=== PATIENT | female | born 1965 | race Caucasian/White ===

== ENCOUNTER 2017-11-17 14:21 | Outpatient (REF) | payer OTHER, SELFPAY ==
[2017-11-17 21:37] LABS: Abs Immature Grans 0.01 k/cumm (0.0-0.09); Absolute Basophil Count 0.02 k/cumm (0.0-0.2); Absolute Lymphocyte Count 0.94 k/cumm (1.2-3.4); Absolute Monocyte Count 0.66 k/cumm (0.11-0.7); Absolute Neutrophil Count 3.07 k/cumm (1.2-6.7); Basophils % 0.4; HCT 35.6 % (36.0-46.0); HGB 12.2 g/dL (12.0-15.5); Immature Grans % 0.2; Mean Corp. HGB Concentration 34.3 g/dL (32.0-36.0); Mean Corpuscular Hemoglobin 35.3 pg (27.0-33.0); Mean Corpuscular Volume 102.9 fL (80-95); Mean Platelet Volume 10.8 fL (8.0-11.0); Neutrophils % 65.4; Platelet Count 133 x1000/uL (130-400); RBC 3.46 m/cumm (4.00-5.20)
[2017-11-17 22:16] LABS: ESR 12 MM/HR (0-30)
[2017-11-17 22:35] LABS: ALT 38 U/L (12-78); AST 52 U/L (15-37); Albumin 3.6 g/dL (3.4-5.0); Alkaline Phosphatase 65 U/L (46-116); Anion Gap 9.7 mmol/L (3-11); BUN 17 mg/dL (7-18); Bilirubin, Total 0.2 mg/dL (0.2-1.0); C-Reactive Protein 0.13 mg/dL (0.0-0.3); CO2 27.3 mmol/L (21.0-32.0); CREATININE 0.72 mg/dL (0.55-1.02); Calcium 8.6 mg/dL (8.5-10.1); Chloride 105 mmol/L (98-107); Glucose 103 mg/dL (70-100); Sodium 142 mmol/L (136-145); Total Protein 7.1 g/dL (6.4-8.2)
[2017-11-19 10:14] LABS: Rheumatoid Factor 11 IU/mL (<12.5)
[2017-11-19 20:01] LABS: Anaplasma phagocytophilum Negative (Negative); B. miyamotoi PCR Negative (Negative); Babesia divergens/MO-1 Negative (Negative); Babesia duncani Negative (Negative); Babesia microti Negative (Negative); Ehrlichia chaffeensis Negative (Negative); Ehrlichia ewingii/canis Negative (Negative); Ehrlichia muris eauclairensis Negative (Negative)
== END 2017-11-17 14:41 ==
LOC: NCHCN 14:21
PROVIDERS: PCP Family Medicine; Visit Provider Family Medicine
DX: M06.30 Rheumatoid nodule, unspecified site (principal); M25.50 Pain in unspecified joint; T14.8XXA Other injury of unspecified body region, initial encounter; W57.XXXA Bitten or stung by nonvenomous insect and other nonvenomous arthropods, initial encounter
CPT/HCPCS: 80053; 85652; 85025; 86140; 86431; 87798

== ENCOUNTER 2018-02-09 15:57 | Outpatient (REF) | payer OTHER, SELFPAY ==
[2018-02-11 10:44] LABS: Lyme Ab w Rflx to Lyme Confirm Negative
[2018-02-11 19:32] LABS: Anaplasma phagocytophilum Negative (Negative); B. miyamotoi PCR Negative (Negative); Babesia divergens/MO-1 Negative (Negative); Babesia duncani Negative (Negative); Babesia microti Negative (Negative); Ehrlichia chaffeensis Negative (Negative); Ehrlichia ewingii/canis Negative (Negative); Ehrlichia muris eauclairensis Negative (Negative)
== END 2018-02-09 16:17 ==
LOC: NCHCN 15:57
PROVIDERS: PCP Family Medicine; Visit Provider Family Medicine
DX: T14.8XXA Other injury of unspecified body region, initial encounter (principal); W57.XXXA Bitten or stung by nonvenomous insect and other nonvenomous arthropods, initial encounter
CPT/HCPCS: 86618; 87798

== ENCOUNTER 2018-11-18 00:45 | Outpatient (CLI) | payer OTHER, SELFPAY ==
--- NOTE | 2018-11-18 12:00 | DI.RAD_ITS ---
EXAM: XR SHOULDER LT COMPLETE 2+V INDICATION: LT SHOULDER PAIN, DISABILITY DETERMINATION. COMPARISON: No exams were available for comparison TECHNIQUE: 2D digital imaging was performed. FINDINGS: Five views were obtained. Prominent hypertrophic spurring of the humeral head and glenoid. Narrowin g of the glenohumeral cartilaginous joint space noted. Minimal AC DJD noted. IMPRESSION: Moderate to severe degenerative changes of the glenohumeral joint.
--- NOTE | 2018-11-18 12:19 | DI.RAD_ITS ---
EXAM: XR LUMBAR SPINE AP, LAT INDICATION: BACK PAIN, DISABILITY DETERMINATION. COMPARISON: [facility] ILIAC JOINTS from 08/06/2016 TECHNIQUE: 2D digital imaging was performed. FINDINGS: Three views were obtained. There is marked narrowing of the intervertebral disc space at L5-S1 with vacuum disc phenomenon consistent with disc degeneration and there is marked sclerosis of the adjacen t vertebral endplates with prominent hypertrophic spurring noted. Moderate facet DJD noted throughou t the lumbar region. Otherwise the intervertebral disc spaces are fairly well maintained. No eviden ce of fracture or dislocation. Question slight pseudo spondylolisthesis of L4 on L5. IMPRESSION: Severe changes of disc degeneration at L5-S1. Facet degenerative changes throughout the lumbar spine .
--- NOTE | 2018-11-18 12:20 | DI.RAD_ITS ---
EXAM: XR KNEE LT 2V AP,LAT INDICATION: KRYSTA KNEE PAIN, DISABILITY DETERMINATION. COMPARISON: No exams were available for comparison TECHNIQUE: 2D digital imaging was performed. FINDINGS: Two views were obtained. There narrowing of the medial tibiofemoral cartilaginous joint space presum ably on a degenerative basis. No other significant abnormality seen. IMPRESSION:
--- NOTE | 2018-11-18 12:20 | DI.RAD_ITS ---
EXAM: XR KNEE RT 2V AP,LAT INDICATION: KRYSTA KNEE PAIN, DISABILITY DETERMINATION. COMPARISON: No exams were available for comparison TECHNIQUE: 2D digital imaging was performed. FINDINGS: Two views were obtained. There narrowing of the medial tibiofemoral cartilaginous joint space. This is presumably on a degenerative basis. No other significant abnormality seen. IMPRESSION:
== END 2018-11-18 01:05 ==
PROVIDERS: PCP Family Medicine; Visit Provider Pediatrics Pediatric Rheumatology
DX: M25.561 Pain in right knee (principal); M25.562 Pain in left knee; M25.512 Pain in left shoulder; M19.011 Primary osteoarthritis, right shoulder; M17.0 Bilateral primary osteoarthritis of knee; M54.5 Low back pain; M51.37 Other intervertebral disc degeneration, lumbosacral region; M47.816 Spondylosis without myelopathy or radiculopathy, lumbar region; Z02.71 Encounter for disability determination
CPT/HCPCS: 72100; 73030; 73560

== ENCOUNTER 2018-11-18 02:28 | Outpatient (CLI) | payer OTHER, SELFPAY | END 2018-11-18 02:48 | PROVIDERS: PCP Family Medicine; Visit Provider Pediatrics Pediatric Rheumatology | DX: J45.909 Unspecified asthma, uncomplicated (principal); J44.9 Chronic obstructive pulmonary disease, unspecified; Z02.71 Encounter for disability determination | CPT/HCPCS: 94060 ==

== ENCOUNTER 2019-05-06 12:44 | Outpatient (REF) | payer OTHER, SELFPAY | END 2019-05-06 13:04 | LOC: NCHCN 12:44 | PROVIDERS: PCP Family Medicine; Visit Provider Physician Assistant Medical | DX: N39.0 Urinary tract infection, site not specified (principal) | CPT/HCPCS: 87077; 87086; 87186 ==

== ENCOUNTER 2019-08-01 09:23 | Day surgery (SDC) | payer OTHER, SELFPAY | END 2019-08-01 09:43 | PROVIDERS: PCP Family Medicine; Visit Provider Orthopaedic Surgery | DX: M19.012 Primary osteoarthritis, left shoulder (principal); Z53.9 Procedure and treatment not carried out, unspecified reason ==

== ENCOUNTER 2019-08-29 11:04 | Day surgery (SDC) | payer OTHER, SELFPAY ==
[2019-08-29 11:15] VITALS: BP 128/88; PULSE 87; RESP 18; TEMP 36.6; O2SAT 100
--- NOTE | 2019-08-29 12:15 | DI.RAD_ITS ---
EXAM: XR SHOULDER LT 1V CLINICAL HISTORY: OA left shoulder. TECHNIQUE: Fluoroscopy was provided for Dr. Hurley for guidance with performing injection procedure. COMPARISON: No exams were available for comparison FINDINGS: Please see procedure note for details. Fluoro Time 1.5 seconds RADIATION DOSE DELIVERED:
[2019-08-29] MEDS: methylPREDNISolone ACETATE 80 MG/ML VIAL (12:40)
--- NOTE | 2019-08-29 12:44 | W.PM.DSUDISC ---
Discharge Plan Disposition Patient Disposition: HOME Condition: Good Discharge Details Reason For Visit: (L) SHOULDER INJECTION Attending Provider: Holden Hurley Primary Care Provider: Mariia Dale V Home Meds and New Rx's Prescriptions: No Action meloxicam [Mobic] 15 MG tablet 15 mg PO DAILY RF: 3 Flovent HFA 120 PUFF HFA aerosol inhaler 2 puff Inhalation BID PRNRF: 0 lorazepam 1 MG tablet 1 mg PO BID RF: 0 albuterol sulfate [ProAir HFA] 200 PUFF HFA aerosol inhaler 2 puff Inhalation PRN PRNRF: 0 promethazine 25 MG tablet 25 mg PO Q6H PRNQty: 12 RF: 0 polyethylene glycol 3350 [Miralax] 17 GM powder in packet 17 gm PO DAILY PRNRF: 0 ranitidine HCl 300 MG tablet 300 mg PO DAILY RF: 0 cyanocobalamin (vitamin B-12) 1,000 MCG/ML solution 1,000 mcg IM .QMONTHLY RF: 0 mometasone [Nasonex] 17 GM spray,non-aerosol 1 spray NS DIRECTED PRNRF: 0 fexofenadine-pseudoephedrine [Yanira-D 12 Hour] 1 EACH tablet extended release 12 hr 1 tab PO BID PRNRF: 0 ibuprofen-diphenhydramine cit [Advil PM] 1 EACH tablet 1 tab PO PRN PRNRF: 0 Discharge Instructions Additional Instructions: Rest L shoulder for next 48 hours. On Thu use L arm as much as your discomfort allows. Apply ice to L shoulder 4 times/day for 1 hour each time for next 2 days. Follow up with in one month. Referrals: Holden Hurley MD [ [facility] STAFF PHYSICIAN] - (f/u in one month) Activity:: Activity as Tolerated Diet:: As Tolerated Discharge Orders Discharge Orders: Discharge Order (Routine); Ordered 08/29/19 Ordered By: Holden Hurley DS: Diagnosis Discharge Diagnosis (1) Primary osteoarthritis, left shoulder: Status: Acute
--- NOTE | 2019-08-29 14:11 | W.PM.OP ---
Date of service: 08/29/19 Time of Service: 14:11 Operative Note Operative Note DATE OF PROCEDURE: 08/29/19 PRE-OP DIAGNOSIS: Osteoarthritis left shoulder POST-OP DIAGNOSIS: same PROCEDURE: C arm guided intra-articular injection left shoulder joint SURGEON: Holden Hurley ANESTHESIA: none COMPLICATIONS: None Patient was transported to: same day Patient's condition: stable Indications: There is a 53-year-old white female with osteoarthritis of her left shoulder. She is experiencing increasing pain that is not being controlled with oral medications. She is hoping to avoid arthroplasty as long as possible. C arm guided intra-articular steroid injection was recommended as a procedure to relieve her pain. She understands that this is a temporizing procedure and that she will probably need shoulder hemiarthroplasty or total shoulder arthroplasty at some point in future. Procedure Description: Patient was taken the operating room on 08/29/2019 placed supine on the operative table. Utilizing a uterine ring forcep and the C arm I localized the left shoulder joint from the front. A jaxson was made on the skin around the uterine forceps. An 18-gauge spinal needle was inserted after prepping the skin with alcohol. The needle was advanced until contact the humeral head. The C-arm was brought in again to confirm good placement of the needle in the shoulder joint. 15 cc of 0.5% Marcaine with epinephrine epinephrine solution along with 80 mg Depo-Medrol were then injected to the spinal needle into the shoulder joint. She achieved good relief of pain. She was discharged to the day surgery unit unit in good condition. She was given instructions to rest her left arm as much as possible next 48 hours. She is to put ice to her left shoulder 4 times a day for an hour each time. She may resume his activities as tolerated for 48 hours. She should follow-up with Dr. Hurley in 1 month. She should take Tylenol or ibuprofen for pain if needed.
== END 2019-08-29 13:02 | disposition home or self-care (01) ==
PROVIDERS: PCP Family Medicine; Visit Provider Orthopaedic Surgery
PROC: (CPT 20610; principal; 2019-08-29 12:30)
DX: M19.012 Primary osteoarthritis, left shoulder (principal); M25.512 Pain in left shoulder
CPT/HCPCS: 20610; 77002; 73020; J1040

== ENCOUNTER → 2020-03-23 02:49 | Outpatient (CLI) | payer OTHER, SELFPAY ==
[2020-03-23] MEDS: Bupivacaine 0.5% Pres-Free 10 ML VIAL IJ (13:23)
[2020-03-23] MEDS: methylPREDNISolone ACETATE 80 MG/ML VIAL IM (13:23)
[2020-03-23] MEDS: Omnipaque 300 MG/ML 10 ML BTL IJ (13:23)
--- NOTE | 2020-03-23 13:24 | DI.RAD_ITS ---
EXAM: RF JOINT INJECTION FLUORO GUID CLINICAL HISTORY: L SHOULDER INJ UNDER FLUORO,RUPTURE LONG HEAD,PRIMARY OA,STRAIN TECHNIQUE: 2D and realtime digital imaging was performed. CONTRAST MATERIAL: Refer to procedure report. COMPARISON: No exams were available for comparison FINDINGS: Fluoroscopy was provided during intra-articular left shoulder injection. Position of the needle is near the biceps tendon insertion into the anterosuperior aspect of the labr um. Small amount of intra-articular contrast is evident and is intimately related to the intra-artic ular aspect of the biceps tendon. Please refer to the procedure report for complete details. Fluoro time: 8 seconds. IMPRESSION:
--- NOTE | 2020-03-24 06:29 | W.PROCNOTE ---
Date of service: 03/23/20 Time of Service: 13:07 Procedure Note Date of procedure: 03/24/20 Procedure: Left Shoulder Injection Surgeon/Proceduralist/Physician: Douglas Hernandez Procedure Diagnosis: Left Glenohumeral Arthritis Procedure Indications: Shireen has had persistent pain of the LEFT shoulder. Noninvasive measures have been tried. To serve as both diagnostic and therapeutic, an injection under fluoroscopy was recommended. I had discussed the risks of the procedure and the patient elected to proceed. Procedure Description: Shireen was greeted in the flouroscopy room. The correct side was identified and the consent was reviewed with the patient and signed. The patient was then placed in the supine position on the fluoroscopy table. The LEFT shoulder was then prepped with Chloraprep. The anterior injection starting point was identiifed by bony landmarks and fluoroscopy. The skin and soft tissue in the tract of the injection was anesthetized with 1% Lidocaine. A spinal needle was then inserted deep into the shoulder joint at the level of the recess between the glenoid and superior humeral head. A small amount of Omnipaque solution was injected to confirm intraarticular placement. Once confirmed, the shoulder was injected with 4cc of 0.5% Bupivicaine and 80mg of Depo-Medrol. A bandaid was placed on the injection site. The patient tolerated the procedure well and noted improvement in pre-injection pain.
== END ==
PROVIDERS: PCP Family Medicine; Visit Provider Student in an Organized Health Care Education/Training Program
DX: M19.012 Primary osteoarthritis, left shoulder (principal); M25.512 Pain in left shoulder
CPT/HCPCS: 20610; 77002; J1040

== ENCOUNTER 2020-05-07 00:51 | Outpatient (CLI) | payer OTHER, SELFPAY ==
--- NOTE | 2020-05-07 08:00 | DI.MRI_ITS ---
EXAM: MR UPPER JOINT LT WO CLINICAL HISTORY: Preop evaluation,PRIMARY OA LT SHOULDER,LT ROTATOR CUFF TEAR,M19.012, TECHNIQUE: Multiplanar multisequence MRI of the shoulder was performed. COMPARISON: CR XR HUMERUS LEFT from 11/01/2019 CR XR SHOULDER LEFT from 11/01/2019 FINDINGS: MARROW:There is no evidence of fracture, Hill-Sachs deformity, nor ominous osseous lesions. There is, however, some intraosseous edema in the humeral head and osseous glenoid is most probably related to the advanced degenerative changes here. ROTATOR CUFF MECHANISM: AC JOINT/ACROMIUM: There are mild degenerative changes in the AC joint. No prominent downgoing osteo phytes.. There is no evidence of os acromiale. Supraspinatus: There is signal abnormality in the supraspinatus tendon which traverses mostly thickne ss of the tendon and there is small amount of fluid in the subacromial bursa. Infraspinatus: Intact. No evidence of tear nor muscle atrophy. Teres Minor: Intact. No evidence of tear nor muscle atrophy. Subscapularis/anterior cuff: Intact. No abnormal signal at the level of the multipennate insertional fibers. No significant tear nor atrophy. BICEPS TENDON: Normal position in the intertubercular groove. However, the intra-articular tendon appears a attenuated. LABRUM: Tear seen in the superior labrum posterior to the biceps insertion region. There is also def iciency of the anterior labrum related to probable chronic tearing related to or through advanced deg enerative osteoarthritic changes here. The posterior labrum appears relatively intact. Inferior lab rum exhibits some tearing. There is no evidence of paralabral cyst GLENOHUMERAL JOINT: There is a prominent joint effusion with synovial thickening. There is significa nt [place] cartilage loss with [id number] apposition of the glenohumeral joint level. Also osteop hyte on the inferior talar surface of the humeral head. There is a degenerative subarticular cysts o n the anterior aspect of the humerus which measures approximately 6 x 4 millimeters. . QUADRILATERAL SPACE: No evidence of mass in the region of the axillary nerve and dorsal circumflex hu meral vessels. Visualized triceps muscle at this level appears unremarkable. IMPRESSION: 1. There are advanced osteoarthritic degenerative changes in the glenohumeral joint with significant [place] cartilage loss-joint space narrowing and osteophytes on the inferior articular surfaces of t he humeral head and opposing osseous glenoid. 2. There is a moderate-large size glenohumeral joint effusion and synovial thickening. This is proba stevan related to degenerative changes. 3. Partial tearing of the supraspinatus tendon above the greater tuberosity. Also superimposed on te ndinosis. Mild muscle atrophy. 4. Partial tearing of the biceps tendon. Slap-type superior labral tear. Also tearing of the anter ior labrum. No evidence of paralabral cyst. DATA REPOSITORY:
== END 2020-05-07 01:11 ==
PROVIDERS: PCP Family Medicine; Visit Provider Student in an Organized Health Care Education/Training Program
DX: M19.012 Primary osteoarthritis, left shoulder (principal); M25.412 Effusion, left shoulder; M75.112 Incomplete rotator cuff tear or rupture of left shoulder, not specified as traumatic; S46.212A Strain of muscle, fascia and tendon of other parts of biceps, left arm, initial encounter
CPT/HCPCS: 73221

== ENCOUNTER 2020-08-21 15:41 | Outpatient (REF) | payer OTHER, SELFPAY ==
[2020-08-21 20:01] LABS: HCT 38.3 % (36.0-46.0); HGB 13.1 g/dL (11.2-15.7); MCH 35.3 pg (27.0-33.0); MCHC 34.2 % (32.0-36.0); MCV 103.2 fL (80-95); MPV 10.5 fL (8.0-11.0); Platelet Count 144 10^3/uL (130-400); RBC 3.71 10^6/uL (3.93-5.22); RDW 12.2 % (11.7-14.6); RDW-SD 46.7 fL; WBC 5.92 10^3/uL (4.4-10.8)
[2020-08-21 20:22] LABS: ESR 10 mm/hr (0-30)
[2020-08-21 20:25] LABS: ALT 37 U/L (14-59); AST 65 U/L (15-37); Albumin 4.1 g/dL (3.4-5.0); Alkaline Phosphatase 63 U/L (46-116); Anion Gap 10.9 mmol/L (3-11); BUN 11 mg/dL (7-18); Bilirubin, Total 0.3 mg/dL (0.2-1.0); C-Reactive Protein 0.06 mg/dL (0.0-0.3); CO2 26.1 mmol/L (21.0-32.0); CREATININE 0.6 mg/dL (0.55-1.02); Calcium 8.8 mg/dL (8.5-10.1); Chloride 104 mmol/L (98-107); Glucose 115 mg/dL (74-106); Potassium 3.9 mmol/L (3.5-5.1); Sodium 141 mmol/L (136-145); TSH (W/Ref FT4) 2.13 uIU/mL (0.36-3.74); Total Protein 7.5 g/dL (6.4-8.2)
[2020-08-25 06:35] LABS: 2-OH-Ethyl-Flurazepam Negative ng/mL (Cutoff: 10); 7-NH-Clonazepam Negative ng/mL (Cutoff: 10); 7-NH-Flunitrazepam Negative ng/mL (Cutoff: 10); Alpha OH-Alprazolam Negative ng/mL (Cutoff: 10); Alpha-OH Midazolam Negative ng/mL (Cutoff: 10); Alpha-OH-Triazolam Negative ng/mL (Cutoff: 10); Alprazolam Negative ng/mL (Cutoff: 10); Benzodiazepines Interpretation Positive.; Chlordiazepoxide Negative ng/mL (Cutoff: 10); Clobazam Negative ng/mL (Cutoff: 10); Clonazepam Negative ng/mL (Cutoff: 10); Diazepam Negative ng/mL (Cutoff: 10); Flurazepam Negative ng/mL (Cutoff: 10); Lorazepam 136 ng/mL (Cutoff: 10); Midazolam Negative ng/mL (Cutoff: 10); N-Desmethylclobazam Negative ng/mL (Cutoff: 10); Prazepam Negative ng/mL (Cutoff: 10); Temazepam Negative ng/mL (Cutoff: 10); Triazolam Negative ng/mL (Cutoff: 10); Zolpidem Carboxylic acid Negative ng/mL (Cutoff: 10)
[2020-08-25 13:19] LABS: Codeine Negative ng/mL (Cutoff: 25); Dihydrocodeine 79 ng/mL (Cutoff: 25); Hydrocodone 215 ng/mL (Cutoff: 25); Hydromorphone Negative ng/mL (Cutoff: 25); Morphine Negative ng/mL (Cutoff: 25); Naloxone Negative ng/mL (Cutoff: 25); Norhydrocodone 274 ng/mL (Cutoff: 25); Noroxycodone 1108 ng/mL (Cutoff: 25); Noroxymorphone Negative ng/mL (Cutoff: 25); Opiates Interpretation Positive.
== END 2020-08-21 15:42 | disposition home or self-care (01) ==
LOC: NCHCN 15:41
PROVIDERS: PCP Family Medicine; Visit Provider Family Medicine
DX: Z51.81 Encounter for therapeutic drug level monitoring; R63.4 Abnormal weight loss; E53.8 Deficiency of other specified B group vitamins
CPT/HCPCS: 80053; 80361; 80362; 80365; 85027; 85652; 80346; 84443; 86140

== ENCOUNTER 2020-10-08 12:10 | Outpatient (REF) | payer OTHER, SELFPAY ==
[2020-10-08 19:35] LABS: Vitamin B12 1285 pg/mL (193-986)
[2020-10-10 10:22] LABS: Hepatitis A Antibody IgM Negative (Negative); Hepatitis B Core Antibody Negative (Negative); Hepatitis B surface Ag Negative (Negative); Hepatitis C Ab w Rflx HCV PCR Negative (Negative)
[2020-10-10 10:34] LABS: Lyme Ab w Rflx to Lyme Confirm Negative (Negative)
[2020-10-10 23:45] LABS: Anaplasma phagocytophilum Negative (Negative); B. miyamotoi PCR Negative (Negative); Babesia divergens/MO-1 Negative (Negative); Babesia duncani Negative (Negative); Babesia microti Negative (Negative); Ehrlichia chaffeensis Negative (Negative); Ehrlichia ewingii/canis Negative (Negative); Ehrlichia muris eauclairensis Negative (Negative)
== END 2020-10-08 12:11 | disposition home or self-care (01) ==
LOC: NCHCN 12:10
PROVIDERS: PCP Family Medicine; Visit Provider Family Medicine
DX: E53.8 Deficiency of other specified B group vitamins (principal); R74.8 Abnormal levels of other serum enzymes; A93.8 Other specified arthropod-borne viral fevers
CPT/HCPCS: 86704; 86709; 86803; 87340; 87798; 82607; 86618

== ENCOUNTER 2020-11-28 01:14 | Outpatient (CLI) | payer OTHER, SELFPAY ==
--- NOTE | 2020-11-28 | DI.CTLCSR_ITS ---
Exam(s) CT CHEST LUNG CANCER SCREEN EXAM: CT CHEST LUNG CANCER SCREEN CLINICAL HISTORY: SCREENING FOR LUNG CA, FORMER SMOKER, Z12.9 TECHNIQUE: Imaging Protocol: Axial computed tomography images with coronal and sagittal reformatted images were created and reviewed COMPARISON: No exams were available for comparison FINDINGS: Tracheobronchial tree: Patent where visualized. Pulmonary parenchyma: No consolidation or dominant measurable mass. Paraseptal emphysematous changes are present. There are mildly increased interstitial infiltrates in the periphery of the lungs bilat erally. Lung Nodules: None. Mediastinum and Nupur: No dominant adenopathy or fluid collection. Thyroid gland: Unremarkable. Pleura: No effusion or pneumothorax. Heart: The heart is not dilated. Coronary artery calcification. No pericardial effusion. Aorta: Thoracic aorta non-dilated.Atherosclerosis. Upper abdomen: Unremarkable. Soft Tissues: Unremarkable. Bones: There are subacute fractures involving the posterior aspects of the left 9th through 12th ribs . There is some callus formation about the fractures. IMPRESSION: 1. No pulmonary nodules. 2. Paraseptal emphysema. 3. Increased peripheral interstitial infiltrates. While this may reflect chronic interstitial diseas e, an interstitial pneumonia or edema cannot be excluded. Follow-up as clinically appropriate. 4. Subacute fractures involving the posterior aspects of the left 9th through 12th ribs. Lung RADS Cat 1 - Negative: No nodules and definitely benign nodules Lung-RADS 1.0 CATEGORIES: Category 0 - Prior chest CT exam(s) being located for comparison. Category 1 - Annual screening in 12 months. No nodules or definitely benign nodules. Category 2 - Annual screening in 12 months. Benign appearance. Nodules with low likelihood of becomin g active cancer. Category 3 - 6-month follow-up. Probably benign. Short-term follow-up suggested. Nodules with low lik elihood of becoming active cancer. Category 4A - 3-month follow-up and CT/PET if >8 mm in size. Suspicious finding. Findings which requi re additional testing. Category 4B - Findings which require additional testing and tissue sampling. Suspicious finding. Modifier S- Potentially clinically significant finding. (Non lung cancer) RADIATION DOSE DELIVERED: 82.65mGy.cm Total DLP CTDIvol 82.65mGy.cm Total DLP CTDIvol DATA REPOSITORY: All CT scans at this facility are submitted to the National Radiology Data Registry (NRDR) Dose Index Registry (DIR) with the [employer] (ACR). RADIATION OPTIMIZATION: All CT scans at this facility use at least one of these dose optimization te chniques: automated exposure control; mA and/or kV adjustment per patient size (includes targeted exa ms where dose is matched to clinical indication); or iterative reconstruction.
--- NOTE | 2020-11-28 | DI.MAMMO_ITS ---
Exam(s) MAMMO SCREENING EXAM: MAMMO SCREENING CLINICAL HISTORY: SCREENING,COUNTS INCLUDE 234 BEDS AT THE [facility],Z00.00 TECHNIQUE: Bilateral full field digital CC and MLO mammographic images were obtained with 3D tomosyn thesis and utilizing computer aided detection (CAD). COMPARISON: Available for comparison. FINDINGS: Masses/Architectural Distortion: None seen. There is a an asymmetric density in the upper left breast 7 cm from the nipple. Microcalcifications: No suspicious pleomorphic-type are seen. Skin Thickening/Nipple Retraction: None. IMPRESSION: 1. Asymmetric density in the upper left breast 7 cm from the nipple. 2. Further evaluation with spot compression view and ultrasound is recommended. BI-RADS Category 0 - Assessment Incomplete: Need additional imaging evaluation Breast Density - Category C - Heterogeneously dense Breast density category C or D implies that the patient has dense breast tissue. Dense breast tissue is very common and is not abnormal but dense breast tissue can make it harder to find cancer on a ma mmogram. Also, dense breast tissue may increase their breast cancer risk. This information about the result of the mammogram report was provided to the patient to raise their awareness. Use this report when you speak with the patient about their risks for breast cancer, which includes their family hist ory. At that time, you may recommend for more screening tests (Ultrasound or MRI) as they might be us eful based on their risk. A negative radiographic report should not delay biopsy if a dominant or clinically suspicious mass is present. Up to ten percent of cancers are not identified on mammography. A negative report may reinforce clinical impression. Adenosis and dense breasts may obscure an underlying neoplasm. False positive reports average 6 to 10%. Patient will receive a letter notifying them of these results.
== END 2020-11-28 01:34 ==
PROVIDERS: PCP Family Medicine; Visit Provider Family Medicine
DX: Z12.31 Encounter for screening mammogram for malignant neoplasm of breast (principal); Z12.2 Encounter for screening for malignant neoplasm of respiratory organs; R92.8 Other abnormal and inconclusive findings on diagnostic imaging of breast; J43.2 Centrilobular emphysema; R91.8 Other nonspecific abnormal finding of lung field; S22.42XA Multiple fractures of ribs, left side, initial encounter for closed fracture
CPT/HCPCS: 71271; 77063; 77067

== ENCOUNTER 2020-12-11 01:18 | Outpatient (CLI) | payer OTHER, SELFPAY ==
--- NOTE | 2020-12-11 | DI.US_ITS ---
Exam(s) MG MAMMO SCREEN CALL BACK UNI US BREAST LT LIMITED EXAM: MG MAMMO SCREEN CALL BACK UNI and U/S breast LT limited CLINICAL HISTORY: F/U MAMMO,ASYMMETRIC DENSITY UPPER LT BREAST. TECHNIQUE: Craniocaudal and mediolateral oblique Full Field Digital Mammography views of the left br east with Computer Aided Diagnosis followed by Tomosynthesis and left breast ultrasound. COMPARISON: Previous are available for comparison. FINDINGS: Mammography/Tomosynthesis: Masses/Architectural Distortion: The asymmetry in the upper breast left focal on the current examinat ion. It appears represent fibroglandular tissue. Microcalcifictions: No suspicious pleomorphic-type are seen. Skin Thickening/Nipple Retraction: None. Left breast US: The upper inner and upper outer quadrants of the left breast were evaluated sonograph ically. Echotexture: Normal appearance of the glandular tissue. Shadowing: No suspicious foci. Cyst: None. Solid lesions: None seen. Ductal dilation: None. IMPRESSION: 1. No evidence of malignancy is noted. 2. A six-month follow-up left mammogram is recommended for re-evaluation. 3. The findings were discussed with the patient on the date of the examination. BI-RADS Category 3 - 6 month - Probably Benign Finding: Recommend follow-up imaging in 6 months Breast Density - Category C - Heterogeneously dense Breast density Category C or D implies that the patient has dense breast tissue. Dense breast tissue can make it harder to find cancer on a mammogram. Dense breast tissue is also associated with an incr eased risk of breast cancer. This information about the result of the mammogram report was provided to the patient to raise their awareness. Use this report when you speak with the patient about their risks for breast cancer, which includes their family history. At that time, you may recommend additional screening tests (Ultrasoun d or MRI) as these tests may add significant information. A negative radiographic report should not delay biopsy if a dominant or clinically suspicious mass is present. Up to ten percent of cancers are not identified on mammography. A negative report may reinforce clinical impression. Adenosis and dense breasts may obscure an underlying neoplasm. False positive reports average 6 to 10%. Patient will receive a letter notifying them of these results.
== END 2020-12-11 01:38 ==
PROVIDERS: PCP Family Medicine; Visit Provider Family Medicine
DX: R92.8 Other abnormal and inconclusive findings on diagnostic imaging of breast (principal)
CPT/HCPCS: 76642; 77063; 77067

== ENCOUNTER 2021-02-21 19:08 | Outpatient (REF) | payer OTHER, SELFPAY ==
[2021-02-22 15:36] LABS: COVID-19 RT-PCR UVMMC Result Negative (Negative)
== END 2021-02-21 19:09 | disposition home or self-care (01) ==
LOC: NCHCN 19:08
PROVIDERS: PCP Family Medicine; Visit Provider Family Medicine
DX: Z20.822 Contact with and (suspected) exposure to COVID-19 (principal)
CPT/HCPCS: U0003

== ENCOUNTER 2021-03-26 12:43 | Outpatient (REF) | payer OTHER, SELFPAY ==
[2021-03-28 12:48] LABS: COVID-19 RT-PCR UVMMC Result Negative (Negative)
== END 2021-03-26 12:44 | disposition home or self-care (01) ==
LOC: NCHCN 12:43
PROVIDERS: PCP Family Medicine; Visit Provider Family Medicine
DX: Z20.822 Contact with and (suspected) exposure to COVID-19 (principal)
CPT/HCPCS: U0003

== ENCOUNTER → 2021-06-11 00:44 | Outpatient (CLI) | payer OTHER, SELFPAY | PROVIDERS: PCP Family Medicine; Visit Provider Family Medicine ==

== ENCOUNTER → 2021-07-03 00:09 | Outpatient (CLI) | payer OTHER, SELFPAY | PROVIDERS: PCP Family Medicine; Visit Provider Family Medicine | CPT/HCPCS: 80053; 85027; 85652; 84443; 86140 ==

== ENCOUNTER 2021-08-21 11:54 | Outpatient (CLI) | payer OTHER, SELFPAY ==
--- NOTE | 2021-08-21 11:30 | DI.RAD_ITS ---
Exam(s) XR SHOULDER RT COMPLETE 2+V EXAM: XR SHOULDER RT COMPLETE 2+V CLINICAL HISTORY: right shoulder pain TECHNIQUE: COMPARISON: CR XR SHOULDER LT COMPLETE 2+V from 08/21/2021 FINDINGS: Two views were obtained. There is moderate to severe loss of the cartilaginous joint space of the gl enohumeral joint. There is mild subchondral sclerosis of the glenoid. There are prominent marginal osteophytes of the glenoid particularly inferiorly and mild to moderate osteophytes of the articular margins of the humeral head are also noted. There is an ossific body projected over the greater tube rosity of the humerus which is nonspecific and which may represent old accessory ossification or old dystrophic calcification. Minimal degenerative changes of the AC joint noted. IMPRESSION: Moderate DJD glenohumeral joint. RADIATION DOSE DELIVERED: Total DLP
--- NOTE | 2021-08-21 11:30 | DI.RAD_ITS ---
Exam(s) XR SHOULDER LT COMPLETE 2+V EXAM: XR SHOULDER LT COMPLETE 2+V CLINICAL HISTORY: left shoulder pain TECHNIQUE: COMPARISON: CR XR SHOULDER LEFT from 11/01/2019 FINDINGS: Two views were obtained. There is severe loss of the cartilaginous joint space of the glenohumeral j oint with marked subchondral sclerosis and flattening of the adjacent bones. There are very prominen t marginal osteophytes the humeral head and glenoid. No other significant bony or soft tissue abnormality seen. IMPRESSION: Severe DJD glenohumeral joint. RADIATION DOSE DELIVERED: Total DLP
== END 2021-08-21 11:55 | disposition home or self-care (01) ==
LOC: DIORS 11:54
PROVIDERS: PCP Family Medicine; Referring Provider Family Medicine; Visit Provider Student in an Organized Health Care Education/Training Program
DX: M25.511 Pain in right shoulder (principal); M25.512 Pain in left shoulder; M19.011 Primary osteoarthritis, right shoulder; M19.012 Primary osteoarthritis, left shoulder
CPT/HCPCS: 73030

== ENCOUNTER 2021-12-31 23:15 | Emergency (ER) | payer OTHER, SELFPAY ==
--- NOTE | 2021-12-31 23:30 | DI.CT_ITS ---
Exam(s) CT HEAD CERVICAL SPINE WO EXAM: CT HEAD CERVICAL SPINE WO CLINICAL HISTORY: fall. TECHNIQUE: Imaging Protocol: Axial computed tomography images with coronal and sagittal reformatted images were created and reviewed COMPARISON: No exams were available for comparison FINDINGS: CT Head: Ventricles and Extra axial spaces: Normal in size and morphology for the patient's age. Hemorrhage: None. Cerebral parenchyma: Normal. Midline shift: None. Brainstem/Cerebellum: Normal. Calvarium: Normal. Visualized Paranasal sinuses/Mastoids: Clear. Soft Tissues: There is a scalp hematoma overlying the posterior left calvarium. CT Cervical Spine: Bones: No acute fracture or subluxation. There is cervical spondylosis. Soft Tissues: Unremarkable. Lung Apices: Clear. IMPRESSION: 1. No acute intracranial process. 2. No acute fracture or subluxation in the cervical spine. 3. Left posterior scalp hematoma. RADIATION DOSE DELIVERED: 1,017.6mGy.cm Total DLP DATA REPOSITORY: All CT scans at this facility are submitted to the National Radiology Data Registry (NRDR) Dose Index Registry (DIR) with the [employer] (ACR). RADIATION OPTIMIZATION: All CT scans at this facility use at least one of these dose optimization te chniques: automated exposure control; mA and/or kV adjustment per patient size (includes targeted exa ms where dose is matched to clinical indication); or iterative reconstruction.
--- NOTE | 2021-12-31 23:30 | RT.EKG_ITS ---
APPROVED REPORT Exam: Resting ECG Reason for Exam: head injury Patient Location: E HR:94 bpm ECG Measurements Heart Rate 94 AXIS VA 146 P 83 QRSd 89 QRS 65 QT 369 T 46 QTc 461 Conclusion Sinus rhythm...normal P axis, V-rate 60- 99 Right atrial enlargement...P>0.25mV 2 lds or<-0.24mV aVR/aVL
--- NOTE | 2021-12-31 23:44 | ED.GENADUL_ITS ---
Discharge Plan Disposition Patient Disposition: HOME Condition: Stable Discharge Details Clinical Impression: Blunt head trauma, Fall Primary Care Provider: Mariia Dale V ED Provider: Ion Claros Home Meds and New Rx's Prescriptions: Continued meloxicam [Mobic] 15 MG tablet 15 mg PO DAILY ibuprofen [Advil] 200 mg tablet 200 mg PO Q6H PRN One-A-Day Women's 50 Plus 400-20 mcg tablet 1 tab PO DAILY naloxone [Narcan] 4 mg/actuation spray,non-aerosol 4 mg intranasal Q2M PRN Rx Instructions: spray 1 dose into ONE nostril; alternate nostrils w each dose until help arrives amlodipine 10 mg tablet 10 mg PO DAILY hydrocodone-acetaminophen 10-325 mg tablet 1 tab PO Q6H PRN oxycodone 20 mg tablet extended release 12 hr PO HS fluticasone propionate [Flovent HFA] 120 PUFF HFA aerosol inhaler 2 puff Inhalation BID PRN lorazepam 1 MG tablet 1 mg PO BID albuterol sulfate [ProAir HFA] 200 PUFF HFA aerosol inhaler 2 puff Inhalation PRN PRN promethazine 25 MG tablet 25 mg PO Q6H PRNQty: 12 0RF polyethylene glycol 3350 [Miralax] 17 GM powder in packet 17 gm PO DAILY PRN Label Comments: 03/28/14 Pt states Qthree days. PG cyanocobalamin (vitamin B-12) 1,000 MCG/ML solution 1,000 mcg IM .QMONTHLY Label Comments: 12/29/14- Pt has not taken for a couple of months. KL mometasone [Nasonex] 17 GM spray,non-aerosol 1 spray NS DIRECTED PRN fexofenadine-pseudoephedrine [Yanira-D 12 Hour] 1 EACH tablet extended release 12 hr 1 tab PO BID PRN Advil PM 1 EACH tablet 1 tab PO PRN PRN Discharge Instructions Additional Instructions: your cat scan did not show concerning findings try to limit alcohol consumption and try not to drink if you take lorazepam or pain medicine follow up with your primary care provider within 1-2 weeks if you feel more ill, have severe worsening pain or new symptoms such as difficulty breathing return to the emergency department Medical Decision Making 56 yo female who has is on chronic pain medications along with benzos for anxiety and states she drinks alcohol most days comes in after a fall. She was drinking throughout the day and states she took her lorazepam and oxycodone which she does frequently, fell from standing hitting the back of her head on a gumball machine they have at home. She woke up on the ground and her brought her here. She arrives caox4 with mild slurring of her words. She has no focal motor deficits. She has no back, neck, chest or abdominal tenderness. She has a 3cm hematoma to the superior scalp, no lacerations or abrasions. Given her intoxication will obtain ct head and c spine. Suspect her fall was due to alcohol, benzo and opiate mixed together but will check cbc, cmp, ekg and troponin. labs unremarkable other than etoh level of 150, ct unremarkable. She is caox4 and is able to ambulate. Discussed with her not mixing alcohol and her prescription benzos and opiates. She was advised to f/u with her pcp, return precautions given. She has no midline neck tenderness. Her is here and can drive her home. Differential Diagnosis Differential Diagnosis: tbi, alcohol intoxication Imaging Data Radiologic Study: Attestation: I personally reviewed and interpreted this imaging study as follows: Imaging: CT Scan Radiologist's impression: no acute findings Lab Data Lab results reviewed: Yes I reviewed the patient's lab results. ECG Data Attestation: I personally reviewed and interpreted this ECG (s) as follows: Prior ECG tracings: not available for review Interpretation: sinus rate of [address] t wave ischemic findings HPI General Date/Time Provider Initiated Documentation: 12/31/21 23:35 . Limitations to Documentation: no limitations . Information obtained by: patient . History of Present Illness 56 year old F presents to the emergency department with the chief complaint of fall, described as moderate, and it has been constant. No relieving factors improve symptom(s), No exacerbating factors reported . Patient notes denies chest pain, fever/chills, nausea/vomiting and shortness of breath. Patient did receive the following treatments prior to arrival, none Related Data Home Medications Medication Instructions Recorded Confirmed albuterol sulfate 90 mcg/actuation 2 puff inhalation PRN PRN 01/31/13 08/21/21 aerosol inhaler (ProAir HFA) fluticasone propionate 220 2 puff inhalation BID PRN 01/31/13 08/21/21 mcg/actuation HFA aerosol inhaler (Flovent HFA) lorazepam 1 mg tablet 1 mg PO BID 01/31/13 08/21/21 promethazine 25 mg tablet 25 mg PO Q6H PRN #12 tabs 01/31/13 08/21/21 cyanocobalamin (vitamin B-12) 1,000 mcg IM .QMONTHLY 03/27/14 08/21/21 1,000 mcg/mL injection solution fexofenadine 60 mg-pseudoephedrine 1 tab PO BID PRN 03/27/14 08/21/21 ER 120 mg tablet,ext.release,12 hr (Yanira-D 12 Hour) mometasone 50 mcg/actuation nasal 1 spray NS DIRECTED PRN 03/27/14 08/21/21 spray (Nasonex) polyethylene glycol 3350 17 gram 17 gm PO DAILY PRN 03/27/14 08/21/21 oral powder packet (Miralax) ibuprofen-diphenhydramine citrate 1 tab PO PRN PRN 12/29/14 08/21/21 200 mg-38 mg tablet (Advil PM) meloxicam 15 mg tablet (Mobic) 15 mg PO DAILY 05/13/16 08/21/21 amlodipine 10 mg tablet 10 mg PO DAILY 01/31/21 08/21/21 hydrocodone 10 mg-acetaminophen 1 tab PO Q6H PRN 01/31/21 08/21/21 325 mg tablet ibuprofen 200 mg tablet (Advil) 200 mg PO Q6H PRN 01/31/21 08/21/21 uyzufxiyiscr-gwxpogkp-jctuihu-folic 1 tab PO DAILY 01/31/21 08/21/21 acid 400 mcg-vit K1 20 mcg tablet (One-A-Day Women's 50 Plus) naloxone 4 mg/actuation nasal 4 mg intranasal Q2M PRN 01/31/21 08/21/21 spray (Narcan) oxycodone 20 mg tablet,extended mg PO HS 01/31/21 08/21/21 release,12 hr Previous Rx's Medication Instructions Recorded promethazine 25 mg tablet 25 mg PO Q6H PRN #12 tabs 01/31/13 Allergies Allergy/AdvReac Type Severity Reaction Status Date / Time SEASON POLLEN Allergy ITCHY Uncoded 08/21/21 11:32 EYES, RUNNY NOSE General Stated Complaint: HeadInjury EVIN: 3 Review of Systems All systems reviewed & are unremarkable except as noted in HPI and below Constitutional Constitutional: Denies chills, Denies fever(s) and Denies weakness Cardiovascular Cardiovascular: Denies chest pain and Denies dyspnea Respiratory Respiratory: Denies cough and Denies dyspnea Gastrointestinal Gastrointestinal: Denies abdominal pain, Denies nausea and Denies vomiting Genitourinary Genitourinary: Denies dysuria Musculoskeletal Musculoskeletal: Denies joint swelling Integumentary/Breasts Skin/Breast: Denies rash Neurologic Neurologic: Denies weakness PFS All Active Problems (Updated 01/01/22 @ 01:18 by Ion Claros MD) Blunt head trauma (Acute) Fall (Acute) Screening for colon cancer (Acute) History of tobacco use (Acute) Rectal bleed (Acute) Marijuana use (Acute) GERD (gastroesophageal reflux disease) (Chronic) Tachycardia (Acute) Unintentional weight loss (Acute) Medical History (Updated 01/01/22 @ 01:18 by Ion Claros MD) Arthritis of right shoulder region B12 deficiency Bakers cyst Chronic pain COPD (chronic obstructive pulmonary disease) Dental infection Depression Elevated liver enzymes Eustachian tube dysfunction Gastroenteritis Generalized anxiety disorder Headache History of alcohol use Joint pain Left rotator cuff tear No-show for appointment Primary osteoarthritis, left shoulder PTSD (post-traumatic stress disorder) Raynauds disease Rectal prolapse Recurrent UTI Rheumatoid nodule Rib pain on left side Rupture long head biceps tendon Shoulder pain, bilateral Tendinopathy of left biceps tendon Tubular adenoma of colon Surgical History Colonoscopy - IV Sedation 2011 Trigger Finger release Social History Smoking/Tobacco Use Status: Current every day Tobacco Type: cigarettes Years smoked: 30 Smoking risk assessment performed?: Yes Alcohol Intake: former Drug use: Daily Substance use type: former substance user Details: last 08/28/19. Current gender identity: female Do you feel safe at home: Yes Do you feel safe in your relationship?: Yes Exam Const General: no acute distress Orientation: alert HENMT Head: no palpable skull fracture Ears: external ears normal General nose exam: external nose normal Mouth: moist mucous membranes Eyes General: appearance normal, both eyes and all related structures Neck Neck: normal visual inspection Resp Effort & Inspection: normal respiratory effort and able to speak in complete sentences Cardio Rate: regular rate Skin General skin exam: no rashes or lesions noted Neuro General: patient alert and patient oriented x3 Extrem General: normal to inspection Psych Mental Status: mental status grossly normal Course Vital Signs Vital signs: Respiratory Effort 12/31/21 23:24 PAWSS Have you Been Recently Intoxicated or Drunk Within the Last 30 days?: Yes Have you Ever Experienced Previous Episodes of Alcohol Withdrawal?: Yes Have you ever Experienced Withdrawal Seizures?: Yes Have you ever Experienced Delirium Tremens(DT)s?: No Have you ever undergone Alcohol Rehabilitation Treatment (i.e, inpt ot outpatient treatment programs)?: Yes Have you ever Experienced Blackouts?: Yes Have you ever Combined Alcohol with other Downers within the last 90 days?: Yes Have you ever Combined Alcohol with any other Substance of Abuse during the last 90 days?: Yes Positive Blood Alcohol level on Presentation? [PCS.BAL]: Yes Evidence of Increased Autonomic Activity (i.e. HR>120, tremor, sweating, agitation, nausea)?: No Result: 8
--- NOTE | 2022-01-01 00:23 | DI.VRAD_ITS ---
PROCEDURE INFORMATION: Exam: CT Head Without Contrast Exam date and time: 12/31/2021 11:46 PM Age: 56 years old Clinical indication: Fall TECHNIQUE: Imaging protocol: Computed tomography of the head without contrast. Radiation optimization: All CT scans at this facility use at least one of these dose optimization techniques: automated exposure control; mA and/or kV adjustment per patient size (includes targeted exams where dose is matched to clinical indication); or iterative reconstruction. COMPARISON: No relevant prior studies available. FINDINGS: Brain: No hemorrhage. Unremarkable white matter. No mass effect. Cerebral ventricles: No ventriculomegaly. Paranasal sinuses: Visualized sinuses are unremarkable. No fluid levels. Mastoid air cells: Visualized mastoid air cells are well aerated. Bones/joints: No acute fracture. Soft tissues: Posterior left scalp vertex soft tissue edema. IMPRESSION: 1. No acute intracranial findings. 2. No acute fracture. 3. Posterior left scalp vertex soft tissue edema. PROCEDURE INFORMATION: Exam: CT Cervical Spine Without Contrast Exam date and time: 12/31/2021 11:46 PM Age: 56 years old Clinical indication: Fall TECHNIQUE: Imaging protocol: Computed tomography of the cervical spine without contrast. Radiation optimization: All CT scans at this facility use at least one of these dose optimization techniques: automated exposure control; mA and/or kV adjustment per patient size (includes targeted exams where dose is matched to clinical indication); or iterative reconstruction. COMPARISON: CT CHEST LUNG CANCER SCREEN 11/28/2020 11:56 AM FINDINGS: Bones/joints: No acute fracture. Normal alignment. No significant disc protrusion. No severe spinal canal stenosis. Lungs: Lung apices are normal. Soft tissues: Unremarkable. IMPRESSION: No acute fracture or subluxation. Dictated and Authenticated by: Magdaleno Cheek MD. Ordering:MAGAN Lemon MD
[2022-01-01 00:28] LABS: Abs Immature Grans 0.01 10^3/uL (0.0-0.06); HCT 36.5 % (36.0-46.0); MCH 35.4 pg (27.0-33.0); MCHC 35.6 % (32.0-36.0); MCV 100 fL (80-95); MPV 9.8 fL (8.0-11.0); Platelet Count 127 10^3/uL (130-400); RBC 3.67 10^6/uL (3.93-5.22); RDW 12.4 % (11.7-14.6); RDW-SD 45.5 fL; WBC 5.42 10^3/uL (4.4-10.8)
[2022-01-01 01:03] LABS: ALT 24 U/L (14-59); AST 36 U/L (15-37); Albumin 3.5 g/dL (3.4-5.0); Alkaline Phosphatase 62 U/L (46-116); Anion Gap 12.7 mmol/L (3-11); BUN 11 mg/dL (7-18); Bilirubin, Total 0.2 mg/dL (0.2-1.0); CO2 25.3 mmol/L (21.0-32.0); CREATININE 0.7 mg/dL (0.55-1.02); Calcium 8.6 mg/dL (8.5-10.1); Chloride 103 mmol/L (98-107); ETHANOL BLOOD 151.8 mg/dL (<10); Estimated GFR 101.44 (mL/min/1.73m2); Glucose 156 mg/dL (74-106); Potassium 3.2 mmol/L (3.5-5.1); Sodium 141 mmol/L (136-145); Troponin I < 50 ng/L (<or=60)
[2022-01-01 01:06] LABS: Absolute Lymphocyte Count 1.84 10^3/uL (1.2-3.4); Absolute Monocyte Count 0.65 10^3/uL (0.1-0.8); Absolute Neutrophil Count 2.93 10^3/uL (1.2-6.7); Atypical Lymphocytes % 3
[2022-01-01 01:07] LABS: Diff Comment Manual Differential; RBC Morphology Normal
== END 2022-01-01 01:28 | disposition home or self-care (01) ==
PROVIDERS: Emergency Provider Emergency Medicine; PCP Family Medicine
DX: S00.03XA Contusion of scalp, initial encounter (principal); J44.9 Chronic obstructive pulmonary disease, unspecified; W18.30XA Fall on same level, unspecified, initial encounter; W22.8XXA Striking against or struck by other objects, initial encounter; Y92.009 Unspecified place in unspecified non-institutional (private) residence as the place of occurrence of the external cause
CPT/HCPCS: 80053; 93005; 99284; 70450; 72125; 80320; 84484; 85025; 93010; 99285

== ENCOUNTER 2022-06-24 12:09 | Outpatient (CLI) | payer OTHER, SELFPAY ==
--- NOTE | 2022-06-24 11:45 | DI.RAD_ITS ---
Exam(s) XR CHEST 2V PA LATERAL EXAM: XR CHEST 2V PA LATERAL CLINICAL HISTORY: f/u chest contusion. TECHNIQUE: 2D digital imaging was performed. COMPARISON: CR XR CHEST, 2 VIEWS from 06/09/2022 formed at outside institution. FINDINGS: 2 views: Heart size is normal. The mediastinum is not widened. There is now infiltrate in lower half of both lung cisneros, predominantly lower lobes, more so on the left side, not associated with pleural effusions. No pneumothorax. No pulmonary edema. No obvious fractures evident. IMPRESSION: Bilateral lower lobe infiltrates. No pleural effusions.No pneumothorax. Stat fax performed. DATA REPOSITORY: RADIATION DOSE DELIVERED:
== END 2022-06-24 12:10 | disposition home or self-care (01) ==
LOC: DIORS 12:10
PROVIDERS: PCP Family Medicine; Referring Provider Family Medicine; Visit Provider Student in an Organized Health Care Education/Training Program
DX: R07.81 Pleurodynia (principal); S20.219A Contusion of unspecified front wall of thorax, initial encounter
CPT/HCPCS: 71046

== ENCOUNTER 2022-09-09 14:11 | Outpatient (REF) | payer OTHER, SELFPAY ==
[2022-09-09 19:00] LABS: HCT 37.8 % (36.0-46.0); MCH 36.4 pg (27.0-33.0); MCV 98 fL (80-95); MPV 10.1 fL (8.0-11.0); Platelet Count 175 10^3/uL (130-400); RBC 3.85 10^6/uL (3.93-5.22); RDW 12.5 % (11.7-14.6); RDW-SD 45.2 fL; WBC 5.53 10^3/uL (4.4-10.8)
[2022-09-09 19:21] LABS: ESR 11 mm/hr (0-30)
[2022-09-09 19:23] LABS: ALT 29 U/L (14-59); AST 50 U/L (15-37); Albumin 4.1 g/dL (3.4-5.0); Alkaline Phosphatase 71 U/L (46-116); Anion Gap 10.2 mmol/L (3-11); BUN 8 mg/dL (7-18); Bilirubin, Total 0.4 mg/dL (0.2-1.0); CO2 25.8 mmol/L (21.0-32.0); CREATININE 0.7 mg/dL (0.55-1.02); Calcium 9.2 mg/dL (8.5-10.1); Calculated LDL 65 mg/dL (<100); Chloride 96 mmol/L (98-107); Cholesterol 213 mg/dL (<200); Estimated GFR 101.44 (mL/min/1.73m2); Glucose 96 mg/dL (74-106); HDL Cholesterol 137 mg/dL (40-60); Potassium 4.4 mmol/L (3.5-5.1); Sodium 132 mmol/L (136-145); TSH (W/Ref FT4) 2.41 uIU/mL (0.36-3.74); Total Protein 7.9 g/dL (6.4-8.2); Triglyceride 55 mg/dL (<150)
[2022-09-09 20:06] LABS: C-Reactive Protein < 0.05 mg/dL (0.0-0.3)
[2022-09-10 19:02] LABS: Rheumatoid Factor <8.6 IU/mL (<12.0)
[2022-09-11 12:37] LABS: Lyme Ab w Rflx to Lyme Confirm Negative (Negative)
[2022-09-11 14:17] LABS: ANA Interpretation Negative (Negative)
== END 2022-09-09 14:12 | disposition home or self-care (01) ==
LOC: NCHCN 14:11
PROVIDERS: PCP Family Medicine; Visit Provider Family Medicine
DX: M25.512 Pain in left shoulder (principal); M25.50 Pain in unspecified joint; R00.0 Tachycardia, unspecified
CPT/HCPCS: 80053; 80061; 85027; 85652; 84443; 86038; 86140; 86431; 86618

== ENCOUNTER 2022-09-25 19:06 | Outpatient (REF) | payer OTHER, SELFPAY | END 2022-09-25 19:07 | disposition home or self-care (01) | LOC: NCHCN 19:06 | PROVIDERS: PCP Family Medicine; Visit Provider Family Medicine | DX: R30.0 Dysuria (principal) | CPT/HCPCS: 87077; 87086; 87186 ==

== ENCOUNTER 2022-10-20 15:23 | Outpatient (REF) | payer OTHER, SELFPAY ==
[2022-10-20 16:47] LABS: ALT 20 U/L (14-59); AST 28 U/L (15-37); Albumin 3.7 g/dL (3.4-5.0); Alkaline Phosphatase 66 U/L (46-116); Anion Gap 6.6 mmol/L (3-11); BUN 20 mg/dL (7-18); Bilirubin, Total 0.2 mg/dL (0.2-1.0); CO2 28.4 mmol/L (21.0-32.0); CREATININE 0.9 mg/dL (0.55-1.02); Calcium 8.9 mg/dL (8.5-10.1); Chloride 102 mmol/L (98-107); Estimated GFR 75.03 (mL/min/1.73m2); Glucose 107 mg/dL (74-106); Potassium 4.1 mmol/L (3.5-5.1); Sodium 137 mmol/L (136-145); Total Protein 7.3 g/dL (6.4-8.2)
[2022-10-23 16:54] LABS: Alter tenuis/alternata IgG 2.2 mcg/mL (<12.0); Aureobasidium pullulans IgG 3.7 mcg/mL (<18.0); Micropolyspora faeni IgG <2.0 mcg/mL (<5.0); Penicillium Chrysogenum IgG 4.2 mcg/mL (<22.0); Phoma betae IgG 2.2 mcg/mL (<8.0)
[2022-11-01 10:47] LABS: Cockatiel Negative (Negative); Parakeet Negative (Negative); Parrot Negative (Negative); Pigeon DE Negative (Negative); Pigeon Sera Negative (Negative)
== END 2022-10-20 15:24 | disposition home or self-care (01) ==
LOC: NCHCN 15:23
PROVIDERS: Student in an Organized Health Care Education/Training Program; PCP Family Medicine; Visit Provider Family Medicine
DX: J84.9 Interstitial pulmonary disease, unspecified (principal); N39.0 Urinary tract infection, site not specified; E87.1 Hypo-osmolality and hyponatremia; R79.89 Other specified abnormal findings of blood chemistry; K21.9 Gastro-esophageal reflux disease without esophagitis; Z87.891 Personal history of nicotine dependence
CPT/HCPCS: 80053; 86001; 86331; 87077; 87086; 87186

== ENCOUNTER 2022-10-24 03:51 | Outpatient (CLI) | payer OTHER, SELFPAY ==
[2022-10-24] MEDS: Inhaler, Assist Device 1 EACH MC (14:43)
[2022-10-24] MEDS: Albuterol HFA 18 GM 200 PUFF INH IH (14:43)
--- NOTE | 2022-10-24 15:57 | W.PFT ---
Date of service: 10/24/22 Time of Service: 13:38 Pulmonary Function Test Result Indications: ILD Interpretation Spirometry: There is no airflow limitation. No significant bronchodilator response. Lung Volumes: Normal lung volumes Diffusion Capacity: Decreased diffusion Airway Pressure: Normal airways resistance Impression Isolated decreased diffusion. This could represent emphysema, ILD or pulmonary vascular disease. Clinical Correlation therefore is recommended.
== END 2022-10-24 03:52 | disposition home or self-care (01) ==
LOC: RT 03:51
PROVIDERS: PCP Family Medicine; Visit Provider Student in an Organized Health Care Education/Training Program
DX: J84.9 Interstitial pulmonary disease, unspecified (principal)
CPT/HCPCS: 94060; 94726; 94729

== ENCOUNTER 2022-11-13 18:29 | Outpatient (REF) | payer OTHER, SELFPAY | END 2022-11-13 18:30 | disposition home or self-care (01) | LOC: NCHCN 18:29 | PROVIDERS: PCP Family Medicine; Visit Provider Family Medicine | DX: N39.0 Urinary tract infection, site not specified (principal) | CPT/HCPCS: 87077; 87086; 87186 ==

== ENCOUNTER 2022-11-14 06:18 | Day surgery (SDC) | payer OTHER, SELFPAY ==
[2022-11-14] VITALS (9 sets, daily range): BP systolic 131–146; BP diastolic 79–98; PULSE 66–74; RESP 16–21; TEMP 36.1–36.5; O2SAT 96–100; BMI 17.9
--- NOTE | 2022-11-14 06:18 | ANES.PREOP_ITS ---
General Info Date of Service Date Performed: 11/14/22 Height: 5 ft 2 in Weight: 44.452 kg Body Mass Index (BMI): 17.9 Surgical Procedure: Operation Date: 11/14/22 07:40 Proposed Procedure Side Surgeon p Bronchoscopy w/BAL and transbronchial bxs Kajal Brooks MD Meds Allergies and Home Medications Allergies Allergy/AdvReac Type Severity Reaction Status Date / Time buspirone Allergy Intermediate Verified 11/14/22 06:30 SEASON POLLEN Allergy ITCHY Uncoded 11/14/22 06:30 EYES, RUNNY NOSE Home Medication Medication Instructions Recorded albuterol sulfate 90 mcg/actuation 2 puff inhalation PRN PRN 01/31/13 aerosol inhaler (ProAir HFA) lorazepam 1 mg tablet 1 mg PO BID 01/31/13 promethazine 25 mg tablet 25 mg PO Q6H PRN #12 tabs 01/31/13 cyanocobalamin (vitamin B-12) 1,000 mcg IM .QMONTHLY 03/27/14 1,000 mcg/mL injection solution fexofenadine 60 mg-pseudoephedrine 1 tab PO BID PRN 03/27/14 ER 120 mg tablet,ext.release,12 hr (Yanira-D 12 Hour) mometasone 50 mcg/actuation nasal 1 spray NS DIRECTED PRN 03/27/14 spray (Nasonex) polyethylene glycol 3350 17 gram 17 gm PO DAILY PRN 03/27/14 oral powder packet (Miralax) meloxicam 15 mg tablet (Mobic) 15 mg PO DAILY 05/13/16 amlodipine 10 mg tablet 10 mg PO DAILY 01/31/21 hydrocodone 10 mg-acetaminophen 1 tab PO Q6H PRN 01/31/21 325 mg tablet ibuprofen 200 mg tablet (Advil) 200 mg PO Q6H PRN 01/31/21 hwnhsszzhlbq-pcpjlgtn-vbmhmqv-folic 1 tab PO DAILY 01/31/21 acid 400 mcg-vit K1 20 mcg tablet (One-A-Day Women's 50 Plus) naloxone 4 mg/actuation nasal 4 mg intranasal Q2M PRN 01/31/21 spray (Narcan) oxycodone 20 mg tablet,extended 20 mg PO HS 01/31/21 release,12 hr albuterol sulfate 2.5 mg/3 mL 2.5 mg inhalation Q4H PRN 06/30/23 (0.083 %) solution for nebulization clonidine HCl 0.1 mg tablet 0.1 mg PO BID PRN 08/22/22 duloxetine 30 mg capsule,delayed 30 mg PO BID 08/22/22 release hydroxyzine HCl 25 mg tablet 25 mg PO TID PRN 08/22/22 mirtazapine 15 mg tablet 30 mg PO DAILY 08/22/22 nitroglycerin 0.4 mg sublingual 0.4 mg sublingual DIRECTED PRN 08/22/22 tablet famotidine 40 mg tablet 40 mg PO DAILY #90 tabs 10/16/22 Current Visit Medications: Current Medications Generic Name Dose Route Start Last Admin Trade Name Freq PRN Reason Stop Dose Admin Ringer's Solution 1,000 mls @ 80 mls/hr 11/14/22 06:00 IV 11/14/22 23:59 INFUSION ABIEL IV Miscellaneous Supplies 1 each 11/14/22 06:00 Iv Access IV 11/14/22 23:59 DIRECTED ABIEL Sodium Chloride 0 ml 11/14/22 06:00 Normal Saline Flush 10 Ml Syr IV 11/14/22 23:59 PRN PRN Sodium Chloride 0 ml 11/14/22 06:00 Normal Saline 10 Ml Vial IJ 11/14/22 23:59 DIRECTED PRN Sterile Water 0 ml 11/14/22 06:00 Water,Injection,Sterile 10 Ml Vial IJ 11/14/22 23:59 DIRECTED PRN PFSH Active Problems Active Problems: Problem Status Onset Code Unintentional weight loss R63.4 Tachycardia R00.0 GERD (gastroesophageal reflux disease) K21.9 Marijuana use F12.90 Rectal bleed K62.5 History of tobacco use Z87.891 Arthritis of right shoulder region M19.011 Screening for colon cancer Z12.11 Lumbosacral spondylosis without myelopathy M47.817 Trigger finger, right middle finger M65.331 Arthritis of left glenohumeral joint M19.012 Contusion of chest S20.219A Abnormal CT scan R93.89 Chest wall pain R07.89 Pneumonia J18.9 Anxiety disorder F41.9 Interstitial lung disease J84.9 Medical History Medical History Abdominal discomfort Abnormal mammogram of left breast Alcohol abuse, in remission B12 deficiency Bakers cyst Chronic pain Concussion with loss of consciousness status unknown sequela COPD (chronic obstructive pulmonary disease) Dental infection Depression Dermacentor andersoni tick bite Dyspnea on exertion Elevated liver enzymes Eustachian tube dysfunction Exposure to COVID-19 virus Gastroenteritis Generalized anxiety disorder Headache History of adenomatous polyp of colon History of alcohol use Hx of syncope Hypertension Joint pain Left rotator cuff tear Left shoulder pain Low back pain No-show for appointment Primary osteoarthritis, left shoulder PTSD (post-traumatic stress disorder) Pt. states no potential triggers Raynauds disease Reaction, situational Rectal prolapse Recurrent UTI Rheumatoid nodule Rib pain on left side Right wrist pain Rupture long head biceps tendon Rupture of left biceps tendon Seasonal allergies Shoulder pain, bilateral Tendinopathy of left biceps tendon Trigger finger (acquired) Tubular adenoma of colon Viral URI Surgical History Surgical History (Updated 11/14/22 @ 06:29 by Elvira Baig) Colonoscopy - IV Sedation 2011 History of arthroscopic knee surgery History of carpal tunnel release History of tubal ligation Trigger Finger release Tobacco Smoking/Tobacco Use Status: Former Tobacco Use Alcohol Alcohol Intake: former Substance Use Substance use: Daily Substance use type: former substance user and marijuana Vital Signs and Lab Results Vital Signs Most Recent Vital Signs in EMR: Temp Pulse Resp BP Pulse Ox 36.5 C 66 18 135/85 100 11/14/22 06:15 11/14/22 06:15 11/14/22 06:15 11/14/22 06:15 11/14/22 06:15 Lab Results Blood Type / Crossmatch: No Data to Display Complete Blood Count: No Data to Display Complete Metabolic Panel: Sodium 137 mmol/L (136-145) 10/20/22 11:00 Potassium 4.1 mmol/L (3.5-5.1) 10/20/22 11:00 Chloride 102 mmol/L (98-107) 10/20/22 11:00 Carbon Dioxide 28.4 mmol/L (21.0-32.0) 10/20/22 11:00 BUN 20 mg/dL (7-18) H 10/20/22 11:00 Creatinine 0.9 mg/dL (0.55-1.02) 10/20/22 11:00 Est GFR (CKD-EPI 2020) 75.03 (mL/min/1.73m2) 10/20/22 11:00 Calcium 8.9 mg/dL (8.5-10.1) 10/20/22 11:00 Albumin 3.7 g/dL (3.4-5.0) 10/20/22 11:00 Glucose 107 mg/dL (74-106) H 10/20/22 11:00 Liver Function Panel: Alanine Aminotransferase (ALT/SGPT) 20 U/L (14-59) 10/20/22 11: 00 Aspartate Amino Transf (AST/SGOT) 28 U/L (15-37) 10/20/22 11:00 Coagulation Panel: No Data to Display Cardiac Panel: No Data to Display Arterial Blood Gas: No Data to Display Venous Blood Gas: No Data to Display Pancreas Panel: No Data to Display Thyroid Panel: No Data to Display Infectious Disease: No Data to Display Blood Cultures: No Data to Display Toxicology Panel: No Data to Display Imaging and Studies Imaging and Studies Study information below may be from another EMR and interpreted by another provider. Please see original notes in EMR for more complete details. EKG Summary: 01/14: Sinus, KALYN. Echocardiogram Summary: 12/06: LVEF 65%, mild MR, mild TR. Pulmonary Function Summary: 11/15: isolated decreased diffusion. Anesthesia Assessment and Plan Anesthesia History Personal History: No History of Anesthesia Complications Family History: No Family History of Anesthesia Complications Exercise Tolerance Exercise Tolerance: Metabolic Equivalents>4 Cardiac & Pulmonary Exam Cardiac Exam: Normal S1/S2 Heart Sounds Pulmonary Exam: Clear Bilateral Breath Sounds Implantable Cardiac Device Does patient have a Pacemaker or an ICD?: No Airway Exam Known Difficult Airway: No Mallampati Class: 3 Mouth Opening: Narrow (< 3cm) Thyromental Distance: Less than 3 cm Neck Range of Motion: Full ROM Neck Circumference: Normal Teeth Condition: Generalized Poor Dentition ASA Classification ASA Score: ASA 3 Emergency Case?: No NPO Status NPO Status: NPO Clears >2 hours, Solids >8 hours Anesthesia Plan Resuscitation Status: Full Code Anesthesia Technique: General Anesthesia Airway Planned: Endotracheal Tube Monitors Used: Standard Monitors Preoperative Comments:: 57 yo female for bronch with ILD. Sig PMHx: HTN (amlodipine), ILD, GERD (well copntrolled), anxiety/depression, former smoker.
--- NOTE | 2022-11-14 06:50 | HPE_ITS ---
Assessment and Plan Assessment and plan (1) Interstitial lung disease: Status: Acute Assessment and plan: 57 yo with ILD that is indeterminate for UIP. Bronchoscopy with Envisia testing to rule out UIP. Patient is safe to proceed with planned procedure. History of Present Illness Narrative: 57 yo presenting for flexible bronchoscopy with BAL and transbronchial biopsies due to ILD. She is feeling well, no new symptoms since our last visit. Review of Systems All systems reviewed & are unremarkable except as noted in HPI and below PFSH All Active Problems Unintentional weight loss (Acute) Tachycardia (Acute) GERD (gastroesophageal reflux disease) (Chronic) Marijuana use (Acute) Rectal bleed (Acute) History of tobacco use (Acute) Arthritis of right shoulder region (Acute) Screening for colon cancer (Acute) Lumbosacral spondylosis without myelopathy (Acute) Trigger finger, right middle finger (Acute) Arthritis of left glenohumeral joint (Acute) Contusion of chest (Acute) Abnormal CT scan (Acute) Chest wall pain (Acute) Pneumonia (Acute) Anxiety disorder (Acute) Interstitial lung disease (Acute) Medical History Abdominal discomfort Abnormal mammogram of left breast Alcohol abuse, in remission B12 deficiency Bakers cyst Chronic pain Concussion with loss of consciousness status unknown sequela COPD (chronic obstructive pulmonary disease) Dental infection Depression Dermacentor andersoni tick bite Dyspnea on exertion Elevated liver enzymes Eustachian tube dysfunction Exposure to COVID-19 virus Gastroenteritis Generalized anxiety disorder Headache History of adenomatous polyp of colon History of alcohol use Hx of syncope Hypertension Joint pain Left rotator cuff tear Left shoulder pain Low back pain No-show for appointment Primary osteoarthritis, left shoulder PTSD (post-traumatic stress disorder) Pt. states no potential triggers Raynauds disease Reaction, situational Rectal prolapse Recurrent UTI Rheumatoid nodule Rib pain on left side Right wrist pain Rupture long head biceps tendon Rupture of left biceps tendon Seasonal allergies Shoulder pain, bilateral Tendinopathy of left biceps tendon Trigger finger (acquired) Tubular adenoma of colon Viral URI Surgical History (Updated 11/14/22 @ 06:29 by Elvira Baig) Colonoscopy - IV Sedation 2011 History of arthroscopic knee surgery History of carpal tunnel release History of tubal ligation Trigger Finger release Social History (Updated 08/22/22 @ 11:08 by Ariana Brooks) Smoking/Tobacco Use Status: Former Tobacco Use tobacco type: cigarettes Quit Date: 02/23/19 Smoking risk assessment performed?: Yes Alcohol Intake: former Drug use: Daily Substance use type: former substance user and marijuana Housing: house Current gender identity: female Do you feel safe at home: Yes Do you feel safe in your relationship?: Yes Meds Allergies and Home Medications Allergies Allergy/AdvReac Type Severity Reaction Status Date / Time buspirone Allergy Intermediate Verified 11/14/22 06:30 SEASON POLLEN Allergy ITCHY Uncoded 11/14/22 06:30 EYES, RUNNY NOSE Home Medications Medication Instructions Recorded Confirmed Type albuterol sulfate 90 mcg/actuation 2 puff inhalation PRN PRN 01/31/13 11/13/22 History aerosol inhaler (ProAir HFA) lorazepam 1 mg tablet 1 mg PO BID 01/31/13 11/14/22 History promethazine 25 mg tablet 25 mg PO Q6H PRN #12 tabs 01/31/13 11/14/22 Rx cyanocobalamin (vitamin B-12) 1,000 mcg IM .QMONTHLY 03/27/14 11/13/22 History 1,000 mcg/mL injection solution fexofenadine 60 mg-pseudoephedrine 1 tab PO BID PRN 03/27/14 11/13/22 History ER 120 mg tablet,ext.release,12 hr (Yanira-D 12 Hour) mometasone 50 mcg/actuation nasal 1 spray NS DIRECTED PRN 03/27/14 11/13/22 History spray (Nasonex) polyethylene glycol 3350 17 gram 17 gm PO DAILY PRN 03/27/14 11/13/22 History oral powder packet (Miralax) meloxicam 15 mg tablet (Mobic) 15 mg PO DAILY 05/13/16 11/13/22 History amlodipine 10 mg tablet 10 mg PO DAILY 01/31/21 11/14/22 History hydrocodone 10 mg-acetaminophen 1 tab PO Q6H PRN 01/31/21 11/14/22 History 325 mg tablet ibuprofen 200 mg tablet (Advil) 200 mg PO Q6H PRN 01/31/21 11/14/22 History filsbrhvghyx-hxpvtttc-muliajp-folic 1 tab PO DAILY 01/31/21 11/14/22 History acid 400 mcg-vit K1 20 mcg tablet (One-A-Day Women's 50 Plus) naloxone 4 mg/actuation nasal 4 mg intranasal Q2M PRN 01/31/21 11/13/22 History spray (Narcan) oxycodone 20 mg tablet,extended 20 mg PO HS 01/31/21 11/14/22 History release,12 hr albuterol sulfate 2.5 mg/3 mL 2.5 mg inhalation Q4H PRN 08/22/22 11/13/22 Histo ry (0.083 %) solution for nebulization clonidine HCl 0.1 mg tablet 0.1 mg PO BID PRN 08/22/22 10/16/22 History duloxetine 30 mg capsule,delayed 30 mg PO BID 08/22/22 10/01/22 History release hydroxyzine HCl 25 mg tablet 25 mg PO TID PRN 08/22/22 11/13/22 History mirtazapine 15 mg tablet 30 mg PO DAILY 08/22/22 11/14/22 History nitroglycerin 0.4 mg sublingual 0.4 mg sublingual DIRECTED PRN 08/22/22 11/13/22 History tablet famotidine 40 mg tablet 40 mg PO DAILY #90 tabs 10/16/22 11/13/22 Rx Exam Narrative Exam Narrative: Gen: NAD, normal respiratory effort, well-nourished HENT: PERRL Chest: No respiratory distress, normal appearance of chest, clear to auscultation bilaterally, no crackles or wheezes, normal inspiratory effort Heart: regular rate and rhythym, no murmurs, rubs or gallops Abdomen: Non-distended Extremities: No clubbing, edema, cyanosis, rashes Neuro: AAOx3 , non focal Psych: cooperative, appropriate mental affect
[2022-11-14] MEDS: Lactated Ringers 1,000 ML 80 ML IV (06:57)
[2022-11-14] MEDS: Lidocaine 1% Pres-Free 5 ML VIAL (07:48)
--- NOTE | 2022-11-14 07:50 | PAPNONF_PTH ---
PATIENT: Shireen Shaw LOC: [facility] U#:[id number] AGE/SX: 57/F ROOM: RE11/14/[address]: Kajal Brooks MD : [id number] BED: DIS: 11/14/2022 SPEC #: [id number] RECD: 11/14/22 13:06 STATUS: CONSTANZA REQ #: [id number] ESTIVEN: 11/14/22 07:[address]: Kajal Brooks DEPT: [facility] Cytology RECD BY: Louise Lala ENTERED: 11/14/22 13:06 SP TYPE: PAPCORY KUNZ DR: Mariia Dale V Tissues: 1 - BODY FLUID CYTO(NOT S/U/N/EM)[facility] Procedures: BODY FLUID CYTO(NOT SPU/UR/NIP/ENDOM)[facility] Comments: [id number] (TOTAL VOLUME = 10 ml, SENT FRESH) (REFRIGERATED)
--- NOTE | 2022-11-14 08:10 | DI.RAD_ITS ---
Exam(s) XR FLOURO OR C-ARM <1 HR EXAM: XR FLOURO OR C-ARM <1 HR CLINICAL HISTORY: Interstitial lung disease TECHNIQUE: 2D and realtime digital imaging was performed. CONTRAST MATERIAL: Refer to procedure report. COMPARISON: No exams were available for comparison FINDINGS: Fluoroscopy was provided for Dr. Thomas during the performance of a transbronchial biopsy. Please refer to the procedure report for complete details. Ka,r=0.39 mGy IMPRESSION: RADIATION DOSE DELIVERED:
--- NOTE | 2022-11-14 08:45 | DI.RAD_ITS ---
Exam(s) XR PORTABLE CHEST AP EXAM: XR PORTABLE CHEST AP CLINICAL HISTORY: s/p transbronchial biopsies TECHNIQUE: 2D digital imaging was performed. COMPARISON: CR XR CHEST, 2 VIEWS from 06/09/2022 CR XR CHEST 2V PA LATERAL from 06/24/[address] CHEST LUNG CANCER SCREEN from 08/11/2022 FINDINGS: LUNGS: Mildly increased basilar interstitial changes. No definite infiltrate. Mild atelectasis left lower lobe. No evidence of pneumothorax. No pleural effusion. HEART: Normal size. AORTA: Normal diameter. BONES: Unremarkable for age. Soft tissues: Unremarkable. IMPRESSION: No acute findings. DATA REPOSITORY: RADIATION DOSE DELIVERED:
--- NOTE | 2022-11-14 08:47 | W.ANESPOSTOP ---
Postoperative Evaluation Date, Time and Location Date Performed: 11/14/22 Time Performed: 08:47 Patient Location: Day Surgery Unit Vital Signs Most Recent Imported Vital Signs: Most Recent Vital Signs Temp Pulse Resp BP Pulse Ox 36.5 C 73 21 146/81 H 98 11/14/22 08:40 11/14/22 08:40 11/14/22 08:40 11/14/22 08:40 11/14/22 08:40 Pain Score Most Recent Pain Score: Most Recent Pain Score Pain Level 0 11/14/22 08:40 Assessment Mental Status: Awake (Alert & Oriented to Patient Baseline) Airway and Respiratory Function: Patent airway with normal (patient baseline) respiratory exam Cardiovascular Function: Hemodynamically Stable Hydration Status: Adequately Hydrated Nausea & Vomiting: No Nausea or Vomiting Pain: Pain is tolerable per patient Peripheral Nerve Block: Patient did not receive a nerve block
--- NOTE | 2022-11-14 08:49 | ROE_ITS ---
Date of service: 11/14/22 Time of Service: 07:30 Operative Note Operative Note Refer to Anesthesia Record Procedure Description: Bronchoscopy Indication:Interstitial lung disease Procedure performed: Flexible bronchoscopy with BAL, transbronchial biopsies of RUL and RLL Sedation plan: General anesthesia Informed consent was obtained after the risks and benefits or the procedure were discussed. The patient was sedated and intubated by anesthesia. A proper and complete OR compliant time out was performed. The therapeutic 6.2mm Olympus bronchoscope was inserted through the endotracheal tube into the airways , where 3cc in total of 1% topical lidocaine was used the anesthetize the airways. The trachea was midline and without lesion or injury. The mucosa appeared normal and there were no signs of tracheomalacia. The celso was sharp. All bronchial subsegments were visualized within each lobe and showed normal mucosa with scant to no clear secretions. A bronchoalveolar lavage was performed in the RML. A total of 120cc of saline was administered with a return of 35cc. The fluid was slightly cloudy in appearance. Next the bronchoscopy was directed to RICARDO to attempt transbronchial biopsies for genetic testing, however her RICARDO airways anatomy was challenging to perform the biopsies. Next I more closely assessed her RUL which was more amenable to biopsy. Two transbronchial biopsies were obtained from the RUL. There was no bleeding visualized. Next 2 transbronchial biopsies were obtained from the RLL without any bleeding. No pneumothorax visualized during fluoroscopy. The bronchoscope was then removed and the case terminated. The patient was taken to PACU in stable condition. Chest Xray ordered and no pneumothorax is present. Samples collected:RML BAL, RUL transbronchial biopsies x2, RLL transbronchial biopsies x2 Testing ordered:Cell diff, bacterial, AFB and fungal cultures, cytopathology, Envisia genetic testing on biopsies Complications:None Kajal Brooks MD Pulmonary & Critical Care Medicine
[2022-11-16 07:20] LABS: Gram Smear Result Neutrophils Present
[2022-11-24 16:33] LABS: Neutrophils Fluid Relative 4 %
[2022-11-24 16:34] LABS: Mono/Macrophage Fluid Relative 96 %
[2022-12-12 10:00] LABS: Fungus Smear No Fungi Seen
== END 2022-11-14 10:03 | disposition home or self-care (01) ==
PROVIDERS: PCP Family Medicine; Visit Provider Student in an Organized Health Care Education/Training Program
PROC: 0BJ08ZZ Inspection of Tracheobronchial Tree, Via Natural or Artificial Opening Endoscopic (ICD-10-PCS; CPT 31622; principal; 2022-11-14 07:30)
DX: J84.9 Interstitial pulmonary disease, unspecified (principal); J44.9 Chronic obstructive pulmonary disease, unspecified; Z79.899 Other long term (current) drug therapy
CPT/HCPCS: 31628; 31632 ×2; 31624; 76000; 80162; 87070; 87102; 87107; 87116; 87205; 87206; 71045; 88104; J2250; J2405

== ENCOUNTER → 2022-12-12 09:27 | Day surgery (SDC) | payer OTHER, SELFPAY | END | disposition home or self-care (01) | LOC: SUR 09:28 | PROVIDERS: PCP Family Medicine; Visit Provider Student in an Organized Health Care Education/Training Program | DX: Z53.21 Procedure and treatment not carried out due to patient leaving prior to being seen by health care provider (principal); M65.331 Trigger finger, right middle finger ==

== ENCOUNTER 2023-02-05 11:26 | Day surgery (SDC) | payer OTHER, SELFPAY ==
--- NOTE | 2023-02-05 11:06 | W.PM.DSUDISC ---
Date of service: 02/05/23 Time of Service: 13:00 Discharge Plan Disposition Patient Disposition: Home Condition: Stable Discharge Details Attending Provider: Jerad Shelley Primary Care Provider: Mariia Dale V Home Meds and New Rx's Prescriptions: Continued famotidine 40 mg tablet 40 mg PO DAILY Qty: 90 3RF meloxicam [Mobic] 15 MG tablet 15 mg PO DAILY ibuprofen [Advil] 200 mg tablet 200 mg PO Q6H PRN One-A-Day Women's 50 Plus 400-20 mcg tablet 1 tab PO DAILY naloxone [Narcan] 4 mg/actuation spray,non-aerosol 4 mg intranasal Q2M PRN Rx Instructions: spray 1 dose into ONE nostril; alternate nostrils w each dose until help arrives amlodipine 10 mg tablet 10 mg PO DAILY hydrocodone-acetaminophen 10-325 mg tablet 1 tab PO Q6H PRN oxycodone 20 mg tablet extended release 12 hr 20 mg PO HS nitroglycerin 0.4 mg tablet, sublingual 0.4 mg sublingual DIRECTED PRN Rx Instructions: do not exceed 3 doses per episode albuterol sulfate 2.5 mg /3 mL (0.083 %) solution for nebulization 2.5 mg inhalation Q4H PRN mirtazapine 15 mg tablet 30 mg PO DAILY lorazepam 1 MG tablet 1 mg PO BID albuterol sulfate [ProAir HFA] 200 PUFF HFA aerosol inhaler 2 puff Inhalation PRN PRN promethazine 25 MG tablet 25 mg PO Q6H PRNQty: 12 0RF polyethylene glycol 3350 [Miralax] 17 GM powder in packet 17 gm PO DAILY PRN Patient Comments: 03/28/14 Pt states Qthree days. PG cyanocobalamin (vitamin B-12) 1,000 MCG/ML solution 1,000 mcg IM .QMONTHLY Patient Comments: 12/29/14- Pt has not taken for a couple of months. KL mometasone [Nasonex] 17 GM spray,non-aerosol 1 spray NS DIRECTED PRN fexofenadine-pseudoephedrine [Yanira-D 12 Hour] 1 EACH tablet extended release 12 hr 1 tab PO BID PRN Discharge Instructions Additional Instructions: Surgery: Right middle finger trigger release Activity: Protect hand for a few weeks. Gently increase finger motion and hand gripping to prevent stiffness. Recommend elevation to minimize swelling and discomfort. Prescriptions: None Resume home medicines, use [id number] Tylenol (acetaminophen) as needed for mild pain and ibuprofen (Motrin) or naproxen (Aleve) as needed for moderate to severe pain and swelling. Dressings: Leave dressing in place for 3 days. May then remove and leave open to air or cover incision with Band-Aid. May get wet after 5 days. Follow-up: 10-[address] Shelley Please call the office during business hours with any questions or concerns. Discharge Orders Discharge Orders: Discharge Order (Routine); Ordered 02/05/23 Ordered By: Jerad Shelley DS: Diagnosis Discharge Diagnosis (1) Trigger finger, right middle finger: Status: Acute
--- NOTE | 2023-02-05 11:08 | W.PM.OP ---
Date of service: 02/05/23 Time of Service: 12:00 Operative Note Operative Note DATE OF PROCEDURE: 02/05/23 PRE-OP DIAGNOSIS: Right middle trigger finger PROCEDURE: Right middle finger trigger release, CPT# 51374 SURGEON: Jerad Shelley IT DIRECTOR: None None ANESTHESIA TYPE: Local By Surgeon Refer to Anesthesia Record ESTIMATED BLOOD LOSS: 1 TOURNIQUET TIME: 0 COMPLICATIONS: None Patient was transported to: same day Patient's condition: stable Indications: Please see complete medical record for details. Findings: Overlying A1 chikis adhesions, significant mechanical triggering from bulbous but intact Procedure Description: In the operating room, the patient was positioned supine on the stretcher. All bony prominences were padded. Preoperative antibiotics were omitted. The correct patient, procedure, and side of the procedure were all verified prior to beginning. Local anesthesia was induced about the site with 10cc of 1% lidocaine containing epinephrine buffered with 1 cc of sodium bicarbonate. The right hand was prepped and draped in the usual sterile fashion. Proper analgesia was confirmed. A small volar longitudinal approach was made overlying the middle finger MCP joint. Soft tissues and adhesions were swept to the sides and retracted to expose the A1 chikis. The release was started at the proximal margin of the chikis and completed to the distal margin with tenotomy scissors. Care was taken to protect the flexor tendons. The tendons were inspected and showed moderate bulbous enlargement in full flexion at the site of triggering, but no significant tendon tearing. Appropriate flexor tendon excursion was confirmed. Given the significant mechanical symptoms, the distal edge of the palmar fascia was released as well, and release was confirmed distally to about the level of the A2 chikis and the proximal phalanx. The patient readily demonstrated full range of motion of the finger without triggering. The small incision was irrigated and then dried. Hemostasis was appropriate. The incision was closed using 3-0 nylon in a horizontal mattress fashion. Xeroform was applied followed by gauze and the hand was gently compressed with an Tyrone bandage. The patient tolerated local anesthesia without complication and was transferred out of the operating room in a stable condition.
[2023-02-05 11:53] VITALS: BP 140/92; PULSE 82; RESP 18; TEMP 36.2; O2SAT 99
[2023-02-05] MEDS: Sodium Bicarbonate 50 MEQ/50 ML VIAL (12:03)
[2023-02-05] MEDS: Lidocaine 1% Multi-Dose W/EPI 1/100,000 50 ML VIAL (12:03)
[2023-02-05 12:33] VITALS: BP 136/85; PULSE 88; RESP 16; TEMP 36.3; O2SAT 98
== END 2023-02-05 13:00 | disposition home or self-care (01) ==
LOC: SUR 11:26
PROVIDERS: PCP Family Medicine; Visit Provider Student in an Organized Health Care Education/Training Program
PROC: (CPT 26055; principal; 2023-02-05 12:00)
DX: M65.331 Trigger finger, right middle finger (principal)
CPT/HCPCS: 26055

== ENCOUNTER 2023-05-01 18:36 | Outpatient (REF) | payer OTHER, SELFPAY ==
--- NOTE | 2023-05-01 14:10 | PAPFT_PTH ---
PATIENT: Shireen Shaw LOC: [facility]#:[id number] AGE/SX: 57/F ROOM: RE05/01/[address]: Mariia Dale V : 1965 BED: DIS: 05/01/2023 SPEC #: [id number] RECD: 05/01/23 18:50 STATUS: CONSTANZA REJordana #: [id number] ESTIVEN: 05/01/23 14:[address]: Mariia Dale V DEPT: [facility] Cytology RECD BY: Louise Lala Tissues: 1 - CX/ENDOCX FOR PAP SMEARS Procedures: PAP THIN PREP/UVM Screening HPV DNA PROBE Comments: [id number]
== END 2023-05-01 18:37 | disposition home or self-care (01) ==
LOC: NCHCN 18:36
PROVIDERS: PCP Family Medicine; Visit Provider Family Medicine
DX: Z12.4 Encounter for screening for malignant neoplasm of cervix (principal); Z11.51 Encounter for screening for human papillomavirus (HPV)
CPT/HCPCS: 88142; 87624

== ENCOUNTER → 2023-05-12 02:26 | Outpatient (CLI) | payer OTHER, SELFPAY ==
--- OUTSIDE RECORDS SUMMARY | 2023-01-20 02:15 | XMS_ITS | Continuity of Care Document ---
Author Name Unknown Organization [facility] Address [address] [place] [address] Care Team Providers Care House Player Name Role Phone MITCH ARROYO Primary Care Physician Encounter [facility]_AR FIN NBR [id number] Date(s): 01/13/23 - 01/13/[address] [id number] Encounter Diagnosis Microhematuria(Discharge Diagnosis) - 01/13/23 Frequent UTI(Discharge Diagnosis) - 01/13/23 Discharge Disposition: Home or Self Care Attending Physician: Apolonia Gonzalez MD Admitting Physician: Apolonia Gonzalez MD Allergies, Adverse Reactions, Alerts No Known Allergies Assessment and Plan Diagnostic Tests Pending * Cytology Request 01/13/23 Medications amoxicillin-clavulanate 400 mg-57 mg/5 mL oral liquid 0 Refill(s) Start Date: 07/05/22 Status: Ordered atenolol 25 mg oral tablet 25 mg = 1 tab, Oral, Daily, # 30 tab, 0 Refill(s) Start Date: 01/10/22 Status: Ordered clotrimazole 10 mg oral lozenge 1 lozenges, Oral, 5 times per day, # 70 lozenges, 0 Refill(s), Pharmacy: [id number], 158, cm, 06/09/22 11:15:00 EDT, Height/Length Dosing, 48.08, kg, 06/09/22 11:15:00 EDT, Weight Dosing Start Date: 07/05/22 Stop Date: 07/19/22 Status: Ordered doxycycline hyclate 100 mg oral tablet 0 Refill(s) Start Date: 07/05/22 Status: Ordered HYDROcodone-acetaminophen 10 mg-325 mg oral tablet 1 tab, Oral, every 6 hr, PRN as needed for pain, 0 Refill(s) Start Date: 01/10/22 Status: Ordered LORazepam 1 mg oral tablet 1 mg = 1 tab, Oral, every 12 hr, 0 Refill(s) Start Date: 01/10/22 Status: Ordered meloxicam 10 mg oral capsule 10 mg = 1 cap, Oral, Daily, # 90 cap, 0 Refill(s) Start Date: 01/10/22 Status: Ordered OxyCONTIN 20 mg oral tablet, extended release 20 mg = 1 tab, Oral, every 12 hr, 0 Refill(s) Start Date: 01/10/22 Status: Ordered promethazine 25 mg oral tablet 25 mg = 1 tab, Oral, every 4 hr, PRN as needed for motion sickness, # 60 tab, 0 Refill(s) Start Date: 01/10/22 Status: Ordered Problem List Condition Confirmation Course Effective Dates Status Health St atus Informant Frequent UTI Confirmed Active Procedures Procedure Date Related Diagnosis Body Site Status Arthroscopy of knee Compl eted Biopsy of lung Completed Carpal tunnel release Com pleted Release of trigger finger Completed Tubal ligation Completed Social History Social History Type Response Tobacco Current some day tob acco user, Former tobacco user Tobacco Use:. Sex Patient Care team information Care Team Personnel Name: MITCH ARROYO Position: No Access Member Role: Primary Care Physician Address: Address: [address] [place] [id number] [place] Care Team Related Persons Name: ALEXANDRU REDDING Address: [facility]
--- OUTSIDE RECORDS SUMMARY | 2023-01-20 02:15 | XMS_ITS | Continuity of Care Document ---
Author Name Unknown Organization [facility] Address [address] [place] [address] Care Team Providers Care Health Insurance Specialist Name Role Phone MITCH ARROYO Primary Care Physician Encounter [facility] FIN NBR [id number] Date(s): 06/09/22 - 06/09/22 [facility] [address] [place] [address]- Encounter Diagnosis Contusion of rib on right side(Discharge Diagnosis) - 06/09/22 Discharge Disposition: Home or Self Care Attending Physician: Artur Ball MD Admitting Physician: Artur Ball MD Allergies, Adverse Reactions, Alerts No Known Allergies Functional Status 06/09/22 Other exposure to Infectious Disease Non e Medications atenolol 25 mg oral tablet 25 mg = 1 tab, Oral, Daily, # 30 tab, 0 Refill(s) Start Date: 01/10/22 Status: Ordered HYDROcodone-acetaminophen 10 mg-325 mg oral [...] 0 Refill(s) Start Date: 01/10/22 Status: Ordered Mental Status 06/09/22 Eye Opening Response Chase Spontaneous ly Best Verbal Response [place] Oriented Best Motor Response Chase Obeys comman ds Chase Coma Score 15 Results Radiology Reports * Exam Date Time Procedure Performing Provider Status 06/09/22 11:48 AM XR Chest 2 Views Leonie Hill; Auth (Verified) Notes: (XR Chest 2 Views) Reason For Exam: trauma R XR Chest 2 Views EXAM DESCRIPTION: XR Chest 2 Views 06/09/2022 INDICATION: TRAUMA R TECHNIQUE: PA and lateral views of the chest. COMPARISON: 03/08/2009 FINDINGS: The lungs are well expanded and clear with no focal consolidation or pulmonary edema. The cardiomediastinal contour and pleural margins are within normal limits. IMPRESSION: No active chest disease. JOB #: [id number] Final Signed by: David Leong MD Signed (Electronic Signature): 06/09/2022 1:31 pm Vital Signs Most recent to oldest [Reference Range]: 1 Temperature Temporal Artery [36-38 Deg C ] 36.1 Deg C (06/09/22 11:01 AM) Peripheral Pulse Rate [60-100 bpm] 106 b pm *HI* (06/09/22 11:01 AM) Respiratory Rate [12-24 br/min] 16 br/mi n (06/09/22 11:01 AM) Blood Pressure [90-140/60-90 mmHg] 146/9 8mmHg *HI* (06/09/22 11:01 AM) Weight Dosing 48.08 kg (06/09/22 11:15 AM) Weight Estimated 48.08 kg (06/09/22 11:01 AM) Height/Length Dosing 158.000 cm (06/09/22 11:15 AM) Height/Length Estimated 158.000 cm (06/09/22 11:01 AM) Social History Social History Type Response Tobacco Never tobacco user T obacco Use:. Sex Hospital Discharge Instructions Patient Education 06/09/2022 10:52:24 Chest Contusion, Adult Chest Contusion, Adult A chest contusion is a deep bruise on the chest. Contusions are usually the result of a blunt injury to tissues under the skin. The injury can damage the small blood vessels under the skin, which causes bleeding under the skin. The skin over the contusion may turn blue, purple, or yellow. You mightnot have pain with a contusion from a minor injury. A more severe injury may lead to a painful and swollen contusion that may last for weeks. What are the causes? A contusion is usually caused by a blow, trauma, or direct force to your chest. These injuries are often the result of: ??? Motor vehicle crashes. ??? Falls. ??? Bicycle injuries. ??? Contact sport injuries. What increases the risk? You may be at a higher risk for a chest contusion if you play a sport in which contact and falls are common. Football and soccer are common examples of this kind of sport. What are the signs or symptoms? Symptoms of this condition include: ??? Swelling in the chest. ??? Pain and tenderness in your chest. ??? Pain with some movements of your upper torso. ??? Discoloration of your chest. The area may have redness and then turn blue, purple, or yellow. ??? Pain when taking deep breaths. How is this diagnosed? This condition may be diagnosed based on your medical history and a physical exam. You may also have other tests, including: ??? X-ray to check if there were any other injuries, such as broken bones (fractures). ??? CT scan, ultrasound, or MRI if internal injuries are suspected. ??? Pulse oximetry, if you have trouble breathing. This test shows the amount of oxygen in your blood. How is this treated? This condition may be treated with: ??? Rest. ??? Applying ice to the injured area. ??? Deep-breathing exercises to reduce the risk of pneumonia. ??? Oxygen therapy. This may be given if you have trouble breathing or have low oxygen levels. ??? Djfo-jbn-vvhzwon medicines for pain control. Follow these instructions at home: Managing pain, stiffness, and swelling ??? If directed, put ice on the injured area. To do this: ??? Put ice in a plastic bag. ??? Place a towel between your skin and the bag. ??? Leave the ice on for 20 minutes, 2???3 times per day. ??? Remove the ice if your skin turns bright red. This is very important. If you cannot feel pain, heat, or cold, you have a greater risk of damage to the area. ??? Take yoci-znn-gzxxiiu and prescription medicines only as told by your health care provider. General instructions ??? Do not lift anything that is heavier than 10 lb (4.5 kg), or the limit that you are told, untilyour health care provider says that it is safe. ??? Rest as told by your health care provider. Avoid sitting for a long time without moving. ??? Get up to take short walks every 1???2 hours. This is important to improve blood flow and breathing. ??? Ask for help if you feel weak or unsteady. ??? Do deep-breathing exercises if your health care provider tells you to do so. ??? Do not use any products that contain nicotine or tobacco. These products include cigarettes, chewing tobacco, and vaping devices, such as e-cigarettes. If you need help quitting, ask your health care provider. ??? Keep all follow-up visits. This is important. Contact a health care provider if: ??? Your swelling or pain is not relieved with medicines or treatment. ??? You have increased bruising or swelling. ??? You have pain that is getting worse. ??? Your symptoms have not improved after 1 week. Get help right away if: ??? You have a sudden increase in pain. ??? You have difficulty breathing. ??? You have dizziness, weakness, or fainting. ??? You have blood in your urine or stool. ??? You cough up blood or you vomit blood. These symptoms may represent a serious problem that is an emergency. Do not wait to see if the symptoms will go away. Get medical help right away. Call your local emergency services (911 in the [place] Do not drive yourself to the hospital. Summary ??? A chest contusion is a deep bruise to the chest that is usually caused by a blow, trauma, or direct force to the chest. ??? Symptoms of this condition include chest pain, tenderness, swelling, and discoloration. ??? Treatment for a chest contusion may include resting and applying ice to the injured area. ??? Contact a health care provider if you have problems breathing or if your pain does not improve with treatment. This information is not intended to replace advice given to you by your health care provider. Make sure you discuss any questions you have with your health care provider. Document Revised: 05/03/2021 Document Reviewed: 05/03/2021 Elsevier Patient Education ?? 2021 [employer] Follow Up Care 06/09/2022 11:01:25 With:Follow up with primary care provider Address: When: only if needed Discharge instructions * Event Display: Discharge Instructions Physician Emergency department Note * Artur Ball MD: PERFORM Event Display: ED Note Physician Authored Date: [id number] ERIKAKATEY LINDA Kira :1965 Age:56 years Sex:Female Visit Date:06/09/2022 Primary Care Physician: MITCH ARROYO Basic Information Time Seen: Artur Ball MD / 06/09/2022 11:17 Chief Complaint Pt. tipped over broom stick and fell on corner of counter hitting R side of ribs History Of Present Illness: Thin 56-year-old female with chronic pain from shoulder issues presents after a fall??onto the edgeof a cabinet. ??She tripped over her broom fell forward and hit??her right??chest under her right arm??on the corner of the cabinet. ??She did not fall to the ground. ??She did not hit her head or neck. ??She had no injury otherwise and no loss of consciousness.?? She felt some crackling??and felt she might of broken a rib and therefore came to the emergency department. Review of Systems: No head or neck injury or other injury. Physical Exam Vitals & Measurements T:??36.1?C ??(Temporal Artery)?? HR:??106??(Peripheral)?? RR:??16?? BP:??146/98?? SpO2:??99%?? HT:??158.000??cm?? WT:??48.08??kg??(Estimated)?? Pain Score:??10?? O2 Therapy:??Room air?? Exam reveals an alert interactive female with no signs of injury.?? Head neck is unremarkable. ??Full range of motion of the neck without pain. Examination of her chest reveals symmetric breath sounds with an increased expiration phase but no wheeze or crackles.?? Compression of the chest AP and laterally is painful but not localized to 1 spot and there is no crepitus or instability palpated.?? I cannot palpate a single area of instabilityor crepitus??following her ribs in the area of greatest pain. ??There is diffuse area of tenderness??in the third through fifth ribs in the anterior axillary line on the right side. ?? X-rays reviewed by me??without??concerning finding,??radiology read pending. Medical Decision Making: Contusion of the ribs. ??No obvious evidence of fracture. ??Radiology read pending. Procedure No Qualifying Data Assessment/Plan 1.??Contusion of rib on right side??S20.211A ??Ice, fwxs-bug-wpvnbgz analgesics or analgesics as she has at home.?? Follow-up primary care for persistent pain if necessary Orders: Discharge Patient, 06/09/22 11:53:00 EDT XR Chest 2 Views, 06/09/22 11:32:00 EDT, Stat, Reason: trauma R, Transport Mode: Ambulatory Patient Education Chest Contusion, Adult Follow Up With When Contact Information Follow up with primary care provider Only if needed Additional Instructions: Medication Reconciliation Unchanged atenolol (atenolol 25 mg oral tablet)1 tab Oral (given by mouth) every day. ?? HYDROcodone-acetaminophen (HYDROcodone-acetaminophen 10 mg-325 mg oral tablet)1 tab Oral (given by mouth) every 6 hours as needed as needed for pain. ?? LORazepam (LORazepam 1 mg oral tablet)1 tab Oral (given by mouth) every 12 hours. ?? meloxicam (meloxicam 10 mg oral capsule)1 Capsules Oral (given by mouth) every day. ?? oxyCODONE (OxyCONTIN 20 mg oral tablet, extended release)1 tab Oral (given by mouth) every 12 hours. ?? promethazine (promethazine 25 mg oral tablet)1 tab Oral (given by mouth) every 4 hours as needed asneeded for motion sickness. Problem List/Past Medical History Ongoing No qualifying data Historical No qualifying data Allergies No Known Allergies Social History Electronic Cigarette/Vaping Electronic Cigarette Use: Never. Substance Use Current, Marijuana Tobacco Never tobacco user Tobacco Use:. Electronically Signed on 06/09/22 11:56 AM Artur Ball MD Emergency department Discharge instructions * Artur Ball MD: PERFORM Event Display: ED Discharge Information Authored Date: [id number] LINDA REDDING :1965 Age:56 years Sex:Female Visit Date:06/09/2022 Primary Care Physician: MITCH ARROYO Discharge Instructions We would like to thank you for allowing us to assist you with your healthcare needs. The following includes patient education materials and information regarding your injury/illness. Diagnosis from Today's Visit Contusion of rib on right side Discharge Vitals Temperature??(Temporal Artery) 97.0 ??F (36.1 ??C) Heart Rate??(Peripheral) 106 Respiratory Rate?? 16 Blood Pressure?? 146/98?? Height?? 62.20 in (158.000 cm) Weight??(Estimated) 106.02 lb (48.08 kg) Allergies No Known Allergies What to Do Next Instructions from Your Care Team I recommend application of ice for 20 to 30 minutes every 2-3 hours today.?? Take deep breaths as able.?? There is no evidence of??rib fracture or??any injury to the lung on my review of your x-ray but I will call if the radiologist feels otherwise.?? This will likely hurt for some time typically??10 days to 2 weeks.?? If pain lasts more than 2 weeks, there is likely a??very small fracture in therib??and that would take more like 4 to 6 weeks??to resolve. You Need to Schedule the Following Appointments Follow Up with??Follow up with primary care provider When:??Only if needed You were treated today on an emergency basis; it may be schaefer to contact your primary care provider to notify them of your visit today. You may have been referred to your regular doctor or a specialist, please follow up as instructed. If your condition worsens or you can't get in to see the doctor, contact the Emergency Department. Medications What How Much When Instructions Next Dose Unchanged atenolol (atenolol 25 mg oral tablet) 1 tab Oral (given by mouth) Every day Unchanged HYDROcodone-acetaminophen (HYDROcodone-acetaminophen 10 mg-325 mg oral tablet) 1 tab Oral (given by mouth) Every 6 hours as needed for as needed for pain Unchanged LORazepam (LORazepam 1 mg oral tablet) 1 tab Oral (given by mouth) Every 12 hours Unchanged meloxicam (meloxicam 10 mg oral capsule) 1 Capsules Oral (given by mouth) Every day Unchanged oxyCODONE (OxyCONTIN 20 mg oral tablet, extended release) 1 tab Oral (given by mouth) Every 12 hours Unchanged promethazine (promethazine 25 mg oral tablet) 1 tab Oral (given by mouth) Every 4 hours as needed for as needed for motion sickness Education Materials Chest Contusion, Adult A chest contusion is a deep bruise on the chest. Contusions are usually the result of a blunt injury to tissues under the skin. The injury can damage the small blood vessels under the skin, which causes bleeding under the skin. The skin over the contusion may turn blue, purple, or yellow. You mightnot have pain with a contusion from a minor injury. A more severe injury may lead to a painful and swollen contusion that may last for weeks. What are the causes? A contusion is usually caused by a blow, trauma, or direct force to your chest. These injuries are often the result of: ? Motor vehicle crashes. ? Falls. ? Bicycle injuries. ? Contact sport injuries. What increases the risk? You may be at a higher risk for a chest contusion if you play a sport in which contact and falls are common. Football and soccer are common examples of this kind of sport. What are the signs or symptoms? Symptoms of this condition include: ? Swelling in the chest. ? Pain and tenderness in your chest. ? Pain with some movements of your upper torso. ? Discoloration of your chest. The area may have redness and then turn blue, purple, or yellow. ? Pain when taking deep breaths. How is this diagnosed? This condition may be diagnosed based on your medical history and a physical exam. You may also have other tests, including: ? X-ray to check if there were any other injuries, such as broken bones (fractures). ? CT scan, ultrasound, or MRI if internal injuries are suspected. ? Pulse oximetry, if you have trouble breathing. This test shows the amount of oxygen in your blood. How is this treated? This condition may be treated with: ? Rest. ? Applying ice to the injured area. ? Deep-breathing exercises to reduce the risk of pneumonia. ? Oxygen therapy. This may be given if you have trouble breathing or have low oxygen levels. ? Bshd-unl-edvxqom medicines for pain control. Follow these instructions at home: Managing pain, stiffness, and swelling ? If directed, put ice on the injured area. To do this: ? Put ice in a plastic bag. ? Place a towel between your skin and the bag. ? Leave the ice on for 20 minutes, 2???3 times per day. ? Remove the ice if your skin turns bright red. This is very important. If you cannot feel pain, heat, or cold, you have a greater risk of damage to the area. ? Take vcdm-thj-mpdrpkv and prescription medicines only as told by your health care provider. General instructions ? Do not lift anything that is heavier than 10 lb (4.5 kg), or the limit that you are told, until your health care provider says that it is safe. ? Rest as told by your health care provider. Avoid sitting for a long time without moving. ? Get up to take short walks every 1???2 hours. This is important to improve blood flow and breathing. ? Ask for help if you feel weak or unsteady. ? Do deep-breathing exercises if your health care provider tells you to do so. ? Do not use any products that contain nicotine or tobacco. These products include cigarettes, chewing tobacco, and vaping devices, such as e-cigarettes. If you need help quitting, ask your health careprovider. ? Keep all follow-up visits. This is important. Contact a health care provider if: ? Your swelling or pain is not relieved with medicines or treatment. ? You have increased bruising or swelling. ? You have pain that is getting worse. ? Your symptoms have not improved after 1 week. Get help right away if: ? You have a sudden increase in pain. ? You have difficulty breathing. ? You have dizziness, weakness, or fainting. ? You have blood in your urine or stool. ? You cough up blood or you vomit blood. These symptoms may represent a serious problem that is an emergency. Do not wait to see if the symptoms will go away. Get medical help right away. Call your local emergency services (911 in the [place] Do not drive yourself to the hospital. Summary ? A chest contusion is a deep bruise to the chest that is usually caused by a blow, trauma, or directforce to the chest. ? Symptoms of this condition include chest pain, tenderness, swelling, and discoloration. ? Treatment for a chest contusion may include resting and applying ice to the injured area. ? Contact a health care provider if you have problems breathing or if your pain does not improve withtreatment. This information is not intended to replace advice given to you by your health care provider. Make sure you discuss any questions you have with your health care provider. Document Revised: 05/03/2021 Document Reviewed: 05/03/2021 [employer] Patient Education ?? 2021 [employer]. Patient/Controller [employer] Signature Patient Name:LINDA REDDING I have received this information and my questions have been answered. Patient/Controller [employer] Name: Patient/Controller [employer] Signature: Relationship to Patient: Witness Name/Signature: Date: Electronically Signed on: 06/09/2022 11:56 EDTSigned by:HERBER Ball MD: PERFORM Event Display: ED Discharge Information Authored Date: [id number] LINDA REDDING :1965 Age:56 years Sex:Female Visit Date:06/09/2022 Primary Care Physician: MITCH ARROYO Discharge Instructions We would like to thank you for allowing us to assist you with your healthcare needs. The following includes patient education materials and information regarding your injury/illness. Diagnosis from Today's Visit Contusion of rib on right side Discharge Vitals Temperature??(Temporal Artery) 97.0 ??F (36.1 ??C) Heart Rate??(Peripheral) 106 Respiratory Rate?? 16 Blood Pressure?? 146/98?? Height?? 62.20 in (158.000 cm) Weight??(Estimated) 106.02 lb (48.08 kg) Allergies No Known Allergies What to Do Next Instructions from Your Care Team I recommend application of ice for 20 to 30 minutes every 2-3 hours today.?? Take deep breaths as able.?? There is no evidence of??rib fracture or??any injury to the lung on my review of your x-ray but I will call if the radiologist feels otherwise.?? This will likely hurt for some time typically??10 days to 2 weeks.?? If pain lasts more than 2 weeks, there is likely a??very small fracture in therib??and that would take more like 4 to 6 weeks??to resolve. You Need to Schedule the Following Appointments Follow Up with??Follow up with primary care provider When:??Only if needed You were treated today on an emergency basis; it may be schaefer to contact your primary care provider to notify them of your visit today. You may have been referred to your regular doctor or a specialist, please follow up as instructed. If your condition worsens or you can't get in to see the doctor, contact the Emergency Department. Medications What How Much When Instructions Next Dose Unchanged atenolol (atenolol 25 mg oral tablet) 1 tab Oral (given by mouth) Every day Unchanged HYDROcodone-acetaminophen (HYDROcodone-acetaminophen 10 mg-325 mg oral tablet) 1 tab Oral (given by mouth) Every 6 hours as needed for as needed for pain Unchanged LORazepam (LORazepam 1 mg oral tablet) 1 tab Oral (given by mouth) Every 12 hours Unchanged meloxicam (meloxicam 10 mg oral capsule) 1 Capsules Oral (given by mouth) Every day Unchanged oxyCODONE (OxyCONTIN 20 mg oral tablet, extended release) 1 tab Oral (given by mouth) Every 12 hours Unchanged promethazine (promethazine 25 mg oral tablet) 1 tab Oral (given by mouth) Every 4 hours as needed for as needed for motion sickness Education Materials Chest Contusion, Adult A chest contusion is a deep bruise on the chest. Contusions are usually the result of a blunt injury to tissues under the skin. The injury can damage the small blood vessels under the skin, which causes bleeding under the skin. The skin over the contusion may turn blue, purple, or yellow. You mightnot have pain with a contusion from a minor injury. A more severe injury may lead to a painful and swollen contusion that may last for weeks. What are the causes? A contusion is usually caused by a blow, trauma, or direct force to your chest. These injuries are often the result of: ? Motor vehicle crashes. ? Falls. ? Bicycle injuries. ? Contact sport injuries. What increases the risk? You may be at a higher risk for a chest contusion if you play a sport in which contact and falls are common. Football and soccer are common examples of this kind of sport. What are the signs or symptoms? Symptoms of this condition include: ? Swelling in the chest. ? Pain and tenderness in your chest. ? Pain with some movements of your upper torso. ? Discoloration of your chest. The area may have redness and then turn blue, purple, or yellow. ? Pain when taking deep breaths. How is this diagnosed? This condition may be diagnosed based on your medical history and a physical exam. You may also have other tests, including: ? X-ray to check if there were any other injuries, such as broken bones (fractures). ? CT scan, ultrasound, or MRI if internal injuries are suspected. ? Pulse oximetry, if you have trouble breathing. This test shows the amount of oxygen in your blood. How is this treated? This condition may be treated with: ? Rest. ? Applying ice to the injured area. ? Deep-breathing exercises to reduce the risk of pneumonia. ? Oxygen therapy. This may be given if you have trouble breathing or have low oxygen levels. ? Utmg-lky-lsablat medicines for pain control. Follow these instructions at home: Managing pain, stiffness, and swelling ? If directed, put ice on the injured area. To do this: ? Put ice in a plastic bag. ? Place a towel between your skin and the bag. ? Leave the ice on for 20 minutes, 2???3 times per day. ? Remove the ice if your skin turns bright red. This is very important. If you cannot feel pain, heat, or cold, you have a greater risk of damage to the area. ? Take zxif-wpp-ocormsq and prescription medicines only as told by your health care provider. General instructions ? Do not lift anything that is heavier than 10 lb (4.5 kg), or the limit that you are told, until your health care provider says that it is safe. ? Rest as told by your health care provider. Avoid sitting for a long time without moving. ? Get up to take short walks every 1???2 hours. This is important to improve blood flow and breathing. ? Ask for help if you feel weak or unsteady. ? Do deep-breathing exercises if your health care provider tells you to do so. ? Do not use any products that contain nicotine or tobacco. These products include cigarettes, chewing tobacco, and vaping devices, such as e-cigarettes. If you need help quitting, ask your health careprovider. ? Keep all follow-up visits. This is important. Contact a health care provider if: ? Your swelling or pain is not relieved with medicines or treatment. ? You have increased bruising or swelling. ? You have pain that is getting worse. ? Your symptoms have not improved after 1 week. Get help right away if: ? You have a sudden increase in pain. ? You have difficulty breathing. ? You have dizziness, weakness, or fainting. ? You have blood in your urine or stool. ? You cough up blood or you vomit blood. These symptoms may represent a serious problem that is an emergency. Do not wait to see if the symptoms will go away. Get medical help right away. Call your local emergency services (911 in the [place] Do not drive yourself to the hospital. Summary ? A chest contusion is a deep bruise to the chest that is usually caused by a blow, trauma, or directforce to the chest. ? Symptoms of this condition include chest pain, tenderness, swelling, and discoloration. ? Treatment for a chest contusion may include resting and applying ice to the injured area. ? Contact a health care provider if you have problems breathing or if your pain does not improve withtreatment. This information is not intended to replace advice given to you by your health care provider. Make sure you discuss any questions you have with your health care provider. Document Revised: 05/03/2021 Document Reviewed: 05/03/2021 [employer] Patient Education ?? 2021 [employer]vier Inc. Patient/Controller [employer] Signature Patient Name:LINDA REDDING I have received this information and my questions have been answered. Patient/Controller [employer] Name: Patient/Controller [employer] Signature: Relationship to Patient: Witness Name/Signature: Date: Electronically Signed on: 06/09/2022 11:53 EDTSigned by:PL XR Chest 2 Views * David Leong MD: VERIFY, VERIFY Event Display: Report EXAM DESCRIPTION: XR Chest 2 Views 06/09/2022 INDICATION: TRAUMA R TECHNIQUE: PA and lateral views of the chest. COMPARISON: 03/08/2009 FINDINGS: The lungs are well expanded and clear with no focal consolidation or pulmonary edema. The cardiomediastinal contour and pleural margins are within normal limits. IMPRESSION: No active chest disease. JOB #: [id number] Final Signed by: David Leong MD Signed (Electronic Signature): 06/09/2022 1:31 pm Patient Care team information Care Team Personnel Name: MITCH ARROYO Position: No Access Member Role: Primary Care Physician Address: Address: [address] [place] [address] [place] Name: Gauri Gordillo Position: Nurse Member Role: Registered Nurse Name: Artur Ball MD Position: Physician Member Role: ED Physician Address: Address: [address] [place] [address]
--- OUTSIDE RECORDS SUMMARY | 2023-01-20 02:15 | XMS_ITS | Continuity of Care Document ---
Author Name Unknown Organization [facility] Ambulatory Clinics Address [address] [place] [address] Encounter [facility] [facility] NBR [id number] Date(s): 01/10/22 - 01/10/22 [facility] Ambulatory Clinics [address] [place], [place] [address] Encounter Diagnosis Left lower quadrant abdominal pain(Discharge Diagnosis) - 01/10/22 Discharge Disposition: Home or Self Care Attending Physician: Danny Jaime. PA Medications atenolol 25 mg oral tablet 25 [...] 0 Refill(s) Start Date: 01/10/22 Status: Ordered Vital Signs Most recent to oldest [Reference Range]: 1 Temperature Tympanic [36.6-37.9 Deg C] 3 6.9 Deg C (01/10/22 11:48 AM) Peripheral Pulse Rate [60-100 bpm] 88 bp m (01/10/22 11:48 AM) Respiratory Rate [12-24 br/min] 16 br/mi n (01/10/22 11:48 AM) Blood Pressure [90-140/60-90 mmHg] 96/64 mmHg (01/10/22 11:48 AM) Weight 42.64 kg (01/10/22 11:48 AM) Weight Measured (lbs) 94.005 lb (01/10/22 11:48 AM) Hospital Discharge Instructions Patient Education 01/10/2022 11:52:43 Abdominal Pain, Adult, Bjyf-ha-Bjiq Abdominal Pain, Adult Many things can cause belly (abdominal) pain. Most times, belly pain is not dangerous. Many cases of belly pain can be watched and treated at home. Sometimes, though, belly pain is serious. Your doctor will try to find the cause of your belly pain. Follow these instructions at home: Medicines ??? Take kqfz-vad-dgdehzl and prescription medicines only as told by your doctor. ??? Do not take medicines that help you poop (laxatives) unless told by your doctor. General instructions ??? Watch your belly pain for any changes. ??? Drink enough fluid to keep your pee (urine) pale yellow. ??? Keep all follow-up visits as told by your doctor. This is important. Contact a doctor if: ??? Your belly pain changes or gets worse. ??? You are not hungry, or you lose weight without trying. ??? You are having trouble pooping (constipated) or have watery poop (diarrhea) for more than 2???3days. ??? You have pain when you pee or poop. ??? Your belly pain wakes you up at night. ??? Your pain gets worse with meals, after eating, or with certain foods. ??? You are vomiting and cannot keep anything down. ??? You have a fever. ??? You have blood in your pee. Get help right away if: ??? Your pain does not go away as soon as your doctor says it should. ??? You cannot stop vomiting. ??? Your pain is only in areas of your belly, such as the right side or the left lower part of the belly. ??? You have bloody or black poop, or poop that looks like tar. ??? You have very bad pain, cramping, or bloating in your belly. ??? You have signs of not having enough fluid or water in your body (dehydration), such as: ??? Dark pee, very little pee, or no pee. ??? Cracked lips. ??? Dry mouth. ??? Sunken eyes. ??? Sleepiness. ??? Weakness. ??? You have trouble breathing or chest pain. Summary ??? Many cases of belly pain can be watched and treated at home. ??? Watch your belly pain for any changes. ??? Take hggn-yfj-othfazd and prescription medicines only as told by your doctor. ??? Contact a doctor if your belly pain changes or gets worse. ??? Get help right away if you have very bad pain, cramping, or bloating in your belly. This information is not intended to replace advice given to you by your health care provider. Make sure you discuss any questions you have with your health care provider. Document Revised: 06/20/2019 Document Reviewed: 06/20/2019 [employer] Patient Education ?? 2021 [employer]. Physician Outpatient Note * Danny Jaime. PA: PERFORM Event Display: Office Clinic Note Physician Authored Date: [id number] LINDA REDDING :1965 Age:56 years Sex:Female Visit Date:01/10/2022 Chief Complaint Pt reports abdominal pain and no BM for 3 weeks. Pt states she passed out last Thursday, fell and hit her head. Was seen at [facility] History of Present Illness Patient notes for 3 weeks she has had lack of bowel movements. ??Only small amounts of liquidy stool.?? She is now complaining of left lower quadrant abdominal pain. ??She has had diffuse abdominal pain throughout this period but now more focal left lower quadrant. ??She also describes associated nausea. ??Did have fever 3 days ago T-max 101.?? She denies any dysuria urgency or frequency. ??No black or bloody stools.?? She denies any abdominal trauma or injury. ??She did fall approximately 1 week ago states that she??had syncopal episode when she stood up. ??She was seen at a local emergency department negative CT scan per patient report. Physical Exam Vitals & Measurements T:??36.9?C ??(Tympanic)?? HR:??88??(Peripheral)?? RR:??16?? BP:??96/64?? SpO2:??100%?? WT:??42.64??kg?? Pain Score:??6?? General: [Well-appearing no acute distress].?? Lungs: [Clear to auscultation bilateral].?? Heart: [Regular rate rhythm]. Abdomen: [Abdomen is??tender diffusely focal tenderness left lower quadrant with tenderness to percussion. ??Mild guarding. ??No CVA tenderness.?? Rectal exam??normal rectal tone. ??Stool heme-negative. ??No??stool palpated in the rectal vault.].? Assessment/Plan 1.??Left lower quadrant abdominal pain??R10.32 Left lower quadrant pain in the setting of recent fever. ??No fever today. ??Vital signs today normal.?? Also with a syncopal episode??1 week ago. ??I recommend emergency department evaluation for further??diagnostic??evaluation of her left lower quad abdominal pain. ??At this time the patient doesnot wish to be transferred to our local emergency department. ??She would like to be seen at??the emergency department closer to her home.?? I reviewed the risk benefits and alternatives with her.?? She has made a full and informed decision to be discharged from our urgent care facility today to goto her local emergency department. Patient Instructions I recommend you go to the emergency department to be evaluated. Patient Education Abdominal Pain, Adult, Dfvr-xg-Dzus Problem List/Past Medical History Ongoing No qualifying data Historical No qualifying data Medications atenolol 25 mg oral tablet, 25 mg= 1 tab, Oral, Daily HYDROcodone-acetaminophen 10 mg-325 mg oral tablet, 1 tab, Oral, every 6 hr, PRN LORazepam 1 mg oral tablet, 1 mg= 1 tab, Oral, every 12 hr meloxicam 10 mg oral capsule, 10 mg= 1 cap, Oral, Daily OxyCONTIN 20 mg oral tablet, extended release, 20 mg= 1 tab, Oral, every 12 hr promethazine 25 mg oral tablet, 25 mg= 1 tab, Oral, every 4 hr, PRN Allergies No active allergies Electronically Signed on 01/10/22 12:56 PM Danny JIMENEZ Outpatient Summary note * Danny JIMENEZ: PERFORM Event Display: Ambulatory Patient Summary Authored Date: [id number] LINDA REDDING :1965 Age:56 years Sex:Female Visit Date:01/10/2022 Ambulatory Visit Instructions We would like to thank you for allowing us to assist you with your healthcare needs. The following includes patient education materials and information regarding your injury/illness. After you leave the office, you may get your health information including your test results, physician notes and discharge information by accessing your Patient Portal. Your Next Steps Instructions From Your Care Team I recommend you go to the emergency department to be evaluated. Medications What How Much When Instructions Unchanged atenolol (atenolol 25 mg oral tablet) [...] needed for as needed for motion sickness Your Summary Your Diagnosis Left lower quadrant abdominal pain Your Care Team Attending Physician - Danny JIMENEZ Discharge Vitals Temperature??(Tympanic) 98.4 ??F (36.9 ??C) Heart Rate??(Peripheral) 88 Respiratory Rate?? 16 Blood Pressure?? 96/64?? Weight?? 94.02 lb (42.64 kg) Allergies No active allergies Education Materials Abdominal Pain, Adult Many things can cause belly (abdominal) pain. Most times, belly pain is not dangerous. Many cases of belly pain can be watched and treated at home. Sometimes, though, belly pain is serious. Your doctor will try to find the cause of your belly pain. Follow these instructions at home: Medicines ? Take gkpq-qmf-cacxykb and prescription medicines only as told by your doctor. ? Do not take medicines that help you poop (laxatives) unless told by your doctor. General instructions ? Watch your belly pain for any changes. ? Drink enough fluid to keep your pee (urine) pale yellow. ? Keep all follow-up visits as told by your doctor. This is important. Contact a doctor if: ? Your belly pain changes or gets worse. ? You are not hungry, or you lose weight without trying. ? You are having trouble pooping (constipated) or have watery poop (diarrhea) for more than 2???3 days. ? You have pain when you pee or poop. ? Your belly pain wakes you up at night. ? Your pain gets worse with meals, after eating, or with certain foods. ? You are vomiting and cannot keep anything down. ? You have a fever. ? You have blood in your pee. Get help right away if: ? Your pain does not go away as soon as your doctor says it should. ? You cannot stop vomiting. ? Your pain is only in areas of your belly, such as the right side or the left lower part of the belly. ? You have bloody or black poop, or poop that looks like tar. ? You have very bad pain, cramping, or bloating in your belly. ? You have signs of not having enough fluid or water in your body (dehydration), such as: ? Dark pee, very little pee, or no pee. ? Cracked lips. ? Dry mouth. ? Sunken eyes. ? Sleepiness. ? Weakness. ? You have trouble breathing or chest pain. Summary ? Many cases of belly pain can be watched and treated at home. ? Watch your belly pain for any changes. ? Take zpns-fxf-nmbacbm and prescription medicines only as told by your doctor. ? Contact a doctor if your belly pain changes or gets worse. ? Get help right away if you have very bad pain, cramping, or bloating in your belly. This information is not intended to replace advice given to you by your health care provider. Make sure you discuss any questions you have with your health care provider. Document Revised: 06/20/2019 Document Reviewed: 06/20/2019 [employer] Patient Education ?? 2021 Elsevier Inc. Electronically Signed on: 01/10/2022 12:55 ESTSigned by:MAURISIO
--- OUTSIDE RECORDS SUMMARY | 2023-01-20 02:15 | XMS_ITS | Continuity of Care Document ---
Author Name Unknown Organization [facility] Address [address] [place] [address] Care Team Providers Care Licensed Clinical Psychologist Name Role Phone MITCH ARROYO Primary Care Physician Encounter [facility] FIN NBR [id number] Date(s): 12/15/22 - 12/15/[address] [address] Encounter Diagnosis Other microscopic hematuria(Final) - Gross hematuria(Final) - Urinary tract infection, site not specified(Final) - Discharge Disposition: Home or Self Care Attending Physician: Cathie Roth APRN Admitting Physician: Cathie Roth APRN Referring Physician: MITCH ARROYO Allergies, Adverse Reactions, Alerts No Known Allergies Assessment and Plan Future Appointments Medications amoxicillin-clavulanate 400 mg-57 mg/5 mL oral liquid 0 Refill(s) Start Date: 07/05/22 Status: Ordered atenolol 25 mg oral tablet 25 mg = 1 tab, Oral, Daily, # 30 tab, 0 Refill(s) Start Date: 01/10/22 Status: Ordered clotrimazole 10 mg oral lozenge 1 lozenges, Oral, 5 times per day, # 70 lozenges, 0 Refill(s), Pharmacy: [facility] #[id number], 158, cm, 06/09/22 11:15:00 EDT, Height/Length Dosing, [...] St atus Informant Frequent UTI Confirmed Active Results Radiology Reports * Exam Date Time Procedure Performing Provider Status 12/15/22 11:[address] Abdomen and Pelvi s w/ + w/o Contrast Emelina Leblanc (Verified) Notes: (CT Abdomen and Pelvis w/ + w/o Contrast) Reason For Exam: gross and micro hematuria CT Abdomen and Pelvis w/ + w/o Contrast EXAM DESCRIPTION: CT Abdomen and Pelvis w/ + w/o Contrast 12/15/2022 INDICATION: GROSS AND MICRO HEMATURIA TECHNIQUE: All CT scans at this facility use at least one of these dose optimization techniques: Automated exposure control; mA and/or kV adjustment per patient size (includes targeted exams where dose is matched to clinical indication); or iterative reconstruction. Technique: Axial CT images of the abdomen/pelvis with IV contrast administration. Precontrast and delayed postcontrast images were also obtained. 100 cc of Isovue-300 contrast was utilized COMPARISON: None FINDINGS: No renal calculi on either side. No hydronephrosis or hydroureter on either side with no evidence of obstructing urinary tract calculus. No focal renal mass or perinephric fluid collection on either side. No intraluminal bladder filling defect identified on delayed post-contrast images. No focal hepatic lesion. Normal enhancement of the main hepatic veins and main portal vein. Normal spleen size without focal mass No calcified gallstones in the gallbladder. Adrenal glands and pancreas appear within normal limits. Normal caliber abdominal aorta with atherosclerotic calcifications No retroperitoneal adenopathy in the abdomen or pelvis. Multiple serpiginous vascular structures in the pelvis measuring up to 5 mm in diameter in a pattern suggesting possible pelvic congestion syndrome. No pelvic mass identified No bowel dilatation to suggest obstruction or ileus. No free intraperitoneal air, ascites or inflammatory changes. Appendix not identified Mild subsegmental atelectasis or scarring in both lung bases No suspicious regional osseous lesions. 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 JOB #: [id number] Final Signed by: David Leong MD Signed (Electronic Signature): 12/15/2022 11:39 am Social History Social History Type Response Tobacco Current some day tob acco user, Former tobacco user Tobacco Use:. Sex Patient Care team information Care Team Personnel Name: CRUZ MITCH Giorgi Position: No Access Member Role: Primary Care Physician Address: Address: [address] [place] [id number] [place] Care Team Related Persons Name: ALEXANDRU REDDING Address: [facility]
--- OUTSIDE RECORDS SUMMARY | 2023-01-20 02:15 | XMS_ITS | Continuity of Care Document ---
Author Name Unknown Organization [facility] Ambulatory Clinics Address [address] [place] [address] Care Team Providers Care Rn Home Care Name Role Phone MITCH ARROYO Primary Care Physician Encounter [facility] NBR [id number] Date(s): 12/10/22 - 12/10/22 [facility] Ambulatory Clinics [address] [place] [address]- Encounter Diagnosis Frequent UTI(Discharge Diagnosis) - 12/10/22 Discharge Disposition: Home or Self Care Attending Physician: Cathie Roth APRN Referring Physician: MITCH ARROYO Allergies, Adverse Reactions, Alerts No Known Allergies Assessment and Plan Future Appointments Future Scheduled Tests Radiology* CT Abdomen and Pelvis w/ + w/o Contrast 12/15/22 Medications amoxicillin-clavulanate 400 mg-57 mg/5 mL oral liquid 0 Refill(s) Start Date: 07/05/22 Status: Ordered atenolol 25 mg oral tablet 25 mg = 1 tab, Oral, Daily, # 30 tab, 0 Refill(s) Start Date: 01/10/22 Status: Ordered clotrimazole 10 mg oral lozenge 1 lozenges, Oral, 5 times per day, # 70 lozenges, 0 Refill(s), Pharmacy: [facility] #[id number], 158, cm, 06/09/22 11:15:00 EDT, Height/Length Dosing, [...] atus Informant Frequent UTI Confirmed Active Results Laboratory List Name Date .Urinalysis POCT 12/10/22 Most recent to oldest [Reference Range]: 1 Method of Collect POC Clean Catch *NA* (12/10/22 11:53 AM) Specific [place], Ur POC 1.020 *NA* (12/10/22 11:53 AM) Specimen Color POC [Yellow] Dark Yellow *ABN* (12/10/22 11:53 AM) Glucose, Urine POC Negative mg/dL *NA* (12/10/22 11:53 AM) Bilirubin, Urine POC [Negative] Negative (12/10/22 11:53 AM) Ketones, Urine POC [Negative mg/dL] Nega tive mg/dL (12/10/22 11:53 AM) Blood, Urine POC [Negative] Moderate *ABN* (12/10/22 11:53 AM) pH, Urine POC 6.0 *NA* (12/10/22 11:53 AM) Protein, Urine POC [Negative mg/dL] 100 mg/dL *ABN* (12/10/22 11:53 AM) Urobilinogen, Urine POC [0.2] 0.2 (12/10/22 11:53 AM) Nitrite, Urine POC [Negative] Negative (12/10/22 11:53 AM) Leuk Esterase, Urine POC [Negative] Larg e *ABN* (12/10/22 11:53 AM) Clarity, Urine POC [Clear] Cloudy *ABN* (12/10/22 11:53 AM) Vital Signs Most recent to oldest [Reference Range]: 1 Peripheral Pulse Rate [60-100 bpm] 87 bp m (12/10/22 10:56 AM) Blood Pressure [90-140/60-90 mmHg] 120/6 4mmHg (12/10/22 10:56 AM) Mean Arterial Pressure, Cuff [65-140 mmH g] 83 mmHg (12/10/22 10:56 AM) Social History Social History Type Response Tobacco Current some day tob acco user, Former tobacco user Tobacco Use:. Sex Patient Care team information Care Team Personnel Name: CRUZ MITCH M Position: No Access Member Role: Primary Care Physician Address: Address: [address] [place] [phone]
--- OUTSIDE RECORDS SUMMARY | 2023-01-20 02:15 | XMS_ITS | Continuity of Care Document ---
Author Name Unknown Organization [facility] Address [address] [place] [address] Care Team Providers Care Co Supervisor [employer] Landscape Name Role Phone MITCH ARROYO Primary Care Physician [phone] Encounter [facility] [facility] NBR [id number] Date(s): 12/10/22 - 12/10/[address] [address] Encounter Diagnosis Frequent UTI(Discharge Diagnosis) - 12/10/22 Urinary tract infection, site not specified(Final) - Discharge Disposition: Home or Self Care Attending Physician: Cathie Roth APRN Admitting Physician: Cathie Roth APRN Allergies, Adverse Reactions, Alerts No Known Allergies [...] day, # 70 lozenges, 0 Refill(s), Pharmacy: [facility] #[id number], 158, cm, 06/09/22 11:15:00 EDT, Height/Length Dosing, [...] Confirmed Active Results Laboratory List Name Date Urinalysis Microscopic 12/10/22 Urinalysis with Microscopic if Indicated 12/10/22 Most recent to oldest [Reference Range]: 1 UA Color [Yellow] Yellow (12/10/22 1:12 PM) UA WBC [0-3] >=100 *ABN* (12/10/22 1:12 PM) UA Urobilinogen [0.2] 0.2 (12/10/22 1:12 PM) UA Bili [Negative] Negative (12/10/22 1:12 PM) UA Ketones [Negative] Negative (12/10/22 1:12 PM) UA RBC [0-3] 25-50 *ABN* (12/10/22 1:12 PM) UA Leuk Est [Negative] Small *ABN* (12/10/22 1:12 PM) UA Nitrite [Negative] Negative (12/10/22 1:12 PM) UA Glucose [Negative] Negative (12/10/22 1:12 PM) UA Bacteria [None Seen] 1+ *ABN* (12/10/22 1:12 PM) UA Protein [Negative] 30 *ABN* (12/10/22 1:12 PM) UA Blood [Negative] Moderate *ABN* (12/10/22 1:12 PM) UA Spec Grav [1.001-1.030] 1.015 (12/10/22 1:12 PM) UA pH [5.00-9.00] 6.00 (12/10/22 1:12 PM) UA Appear [Clear] Cloudy *ABN* (12/10/22 1:12 PM) UA Culture Ind?. [No] Ordered by Prov (12/10/22 1:12 PM) Urine Srce Clean Catch (12/10/22 1:12 PM) Orders for Microbiology Reports Name Date Urine Culture 12/10/22 Microbiology Reports TEST:Urine Culture STATUS:Order in Progress BODY SITE: SOURCE:Urine, Clean Catch COLLECTED DATE/TIME:12/10/22 1:12 PM PRELIMINARY REPORT No growth first am read Social History Social History Type Response Tobacco Current some day tob acco user, Former tobacco user Tobacco Use:. Sex Patient Care team information Care Team Personnel Name: MITCH ARROYO Position: No Access Member Role: Primary Care Physician Address: Address: [address] [place] [phone]
--- OUTSIDE RECORDS SUMMARY | 2023-01-20 02:15 | XMS_ITS | Continuity of Care Document ---
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 [employer] Name Role Phone MITCH ARROYO Primary Care Physician [phone] Encounter [facility] NBR [id number] Date(s): 07/05/22 - 07/05/22 [facility] [address], [place] [address] Encounter Diagnosis Oral candidiasis(Discharge Diagnosis) - 07/05/22 Discharge Disposition: Home or Self Care Attending Physician: Laura Grady PA-C Allergies, Adverse Reactions, Alerts No Known Allergies Functional Status 07/05/22 Other exposure to Infectious Disease Non e Medications amoxicillin-clavulanate 400 mg-57 mg/5 mL oral liquid 0 Refill(s) Start Date: 07/05/22 Status: Ordered atenolol 25 mg oral tablet 25 mg = 1 tab, Oral, Daily, # 30 tab, 0 Refill(s) Start Date: 01/10/22 Status: Ordered clotrimazole 10 mg oral lozenge 1 lozenges, Oral, 5 times per day, # 70 lozenges, 0 Refill(s), Pharmacy: [facility] #[id number], 158, cm, 06/09/22 11:15:00 EDT, Height/Length Dosing, [...] 1 Temperature Tympanic [36.6-37.9 Deg C] 3 7.2 Deg C (07/05/22 2:57 PM) Peripheral Pulse Rate [60-100 bpm] 86 bp m (07/05/22 2:57 PM) Weight 42.64 kg (07/05/22 2:57 PM) Weight Measured (lbs) 94.005 lb (07/05/22 2:57 PM) Height 157.48 cm (07/05/22 2:57 PM) Height/Length Measured (inches) 62 inch (07/05/22 2:57 PM) BSA Measured 1.37 m2 (07/05/22 2:57 PM) Body Mass Index 17.19 kg/m2 (07/05/22 2:57 PM) Social History Social History Type Response Tobacco Never tobacco user T obacco Use:. Sex Hospital Discharge Instructions Patient Education 07/05/2022 14:21:24 Oral Thrush, Adult Oral Thrush, Adult Oral thrush, also called oral candidiasis, is a fungal infection that develops in the mouth and throat and on the tongue. It causes white patches to form in the mouth and on the tongue. Many cases of thrush are mild, but this infection can also be serious. Thrush can be a repeated (recurrent) problem for certain people who have a weak body defense system (immune system). The weakness can be caused by chronic illnesses, or by taking medicines that limit the body's ability to fight infection. If a person has difficulty fighting infection, the fungus that causes thrush can spread through the body. This can cause life-threatening blood or organ infections. What are the causes? This condition is caused by a fungus (yeast) called Caterina albicans. ??? This fungus is normally present in small amounts in the mouth and on other mucous membranes. Itusually causes no harm. ??? If conditions are present that allow the fungus to grow without control, it invades surroundingtissues and becomes an infection. ??? Other Caterina species can also lead to thrush, though this is rare. What increases the risk? The following factors may make you more likely to develop this condition: ??? Having a weakened immune system. ??? Being an older adult. ??? Having diabetes, cancer, or HIV (human immunodeficiency virus). ??? Having dry mouth (xerostomia). ??? Being or . ??? Having poor dental care, especially in those who have dentures. ??? Using antibiotic or steroid medicines. What are the signs or symptoms? Symptoms of this condition can vary from mild and moderate to severe and persistent. Symptoms may include: ??? A burning feeling in the mouth and throat. This can occur at the start of a thrush infection. ??? White patches that stick to the mouth and tongue. The tissue around the patches may be red, raw, and painful. If rubbed (during tooth brushing, for example), the patches and the tissue of the mouth may bleed easily. ??? A bad taste in the mouth or difficulty tasting foods. ??? A cottony feeling in the mouth. ??? Pain during eating and swallowing. ??? Poor appetite. ??? Cracking at the corners of the mouth. How is this diagnosed? This condition is diagnosed based on: ??? A physical exam. ??? Your medical history. How is this treated? This condition is treated with medicines called antifungals, which prevent the growth of fungi. These medicines are either applied directly to the affected area (topical) or swallowed (oral). The treatment will depend on the severity of the condition. ??? Mild cases of thrush may be treated with an antifungal mouth rinse or lozenges. Treatment usually lasts about 14 days. ??? Moderate to severe cases of thrush can be treated with oral antifungal medicine, if they have spread to the esophagus. A topical antifungal medicine may also be used. For some severe infections, treatment may need to continue for more than 14 days. ??? Oral antifungal medicines are rarely used during because they may be harmful to the unborn child. If you are , talk with your health care provider about options for treatment. ??? Persistent or recurrent thrush. For cases of thrush that do not go away or keep coming back: ??? Treatment may be needed twice as long as the symptoms last. ??? Treatment will include both oral and topical antifungal medicines. ??? People with a weakened immune system can take an antifungal medicine on a continuous basis to prevent thrush infections. It is important to treat conditions that make a person more likely to get thrush, such as diabetes or HIV. Follow these instructions at home: Medicines ??? Take or use ykad-hsv-ddnfakf and prescription medicines only as told by your health care provider. ??? Talk with your health care provider about an mbcz-qdo-frbsyhb medicine called gentian lisa, which kills bacteria and fungi. Relieving soreness and discomfort To help reduce the discomfort of thrush: ??? Drink cold liquids such as water or iced tea. ??? Try flavored ice treats or frozen juices. ??? Eat foods that are easy to swallow, such as gelatin, ice cream, or custard. ??? Try drinking from a straw if the patches in your mouth are painful. General instructions ??? Eat plain, unflavored yogurt as directed by your health care provider. Check the label to make sure the yogurt contains live cultures. This yogurt can help healthy bacteria grow in the mouth and can stop the growth of the fungus that causes thrush. ??? If you wear dentures, remove the dentures before going to bed, brush them vigorously, and soak them in a cleaning solution as directed by your health care provider. ??? Rinse your mouth with a warm salt-water mixture several times a day. To make a salt-water mixture, dissolve ?1 tsp (3???6 g) of salt in 1 cup (237 mL) of warm water. Contact a health care provider if: ??? Your symptoms are getting worse or are not improving within 7 days of starting treatment. ??? You have symptoms of a spreading infection, such as white patches on the skin outside of the mouth. ??? You are your baby and you have redness and pain in the nipples. Summary ??? Oral thrush, also called oral candidiasis, is a fungal infection that develops in the mouth andthroat and on the tongue. It causes white patches to form in the mouth and on the tongue. ??? You are more likely to get this condition if you have a weakened immune system or an underlyingcondition, such as HIV, cancer, or diabetes. ??? This condition is treated with medicines called antifungals, which prevent the growth of fungi. ??? Contact a health care provider if your symptoms do not improve, or get worse, within 7 days of starting treatment. This information is not intended to replace advice given to you by your health care provider. Make sure you discuss any questions you have with your health care provider. Document Revised: 12/16/2019 Document Reviewed: 12/16/2019 [employer] Patient Education ?? 2021 [employer]. Physician Outpatient Note * Laura Grady PA-C: PERFORM Event Display: Office Clinic Note Physician Authored Date: [id number] LINDA REDDING :1965 Age:56 years Sex:Female Visit Date:07/05/2022 Primary Care Physician: MITCH ARROYO Chief Complaint pt c/o white areas in mouth, gums and throat. ??She has been on abx recently History of Present Illness 56-year-old female??presents with??complaints of throat,??palate, and tongue??pain over the last 2 days.?? She states that she has been on antibiotics for pneumonia??both amoxicillin and doxycycline??which her primary care physician prescribed??her last day of antibiotics will be tomorrow.?? Statesshe is having pain with eating??and throat feels uncomfortable.?? She has not tried anything evtt-auj-mqiouxt states she went to [facility] yesterday and they told her she would have to be seen to geta prescription.?? She has never had thrush before,??she does state that she takes an??albuterol??inhaler??and wonders if it??is from that. ??Denies dysphagia??and??swelling of??tongue lips or face. ?? Tobacco user. ??No diabetes.?? Does not have dentures. Physical Exam Vitals & Measurements T:??37.2?C ??(Tympanic)?? HR:??86??(Peripheral)?? SpO2:??99%?? HT:??157.48??cm?? WT:??42.64??kg?? BMI:??17.19?? Pain Score:??5?? BSA:??1.37?appears older than stated age.?? Pleasant and cooperative alert and oriented x3.?? Answering all questions appropriately. ??No acute distress noted. ??Patient is afebrile??no diaphoresis noted.?? No swelling noted of the face lips or tongue. ??Posterior pharynx slightly??injected??no bulging of the posterior pharynx or soft palate noted.?? No white plaque-like lesions noted to tongue??buccal mucosa or posterior pharynx.?Poor dentition noted.?? No cervical lymphadenopathy noted.?? Lungs clear to auscultation, no shortness of breath,??easy work of breathing. ??Heart rate??regular with??regu lar??rhythm??and??no murmur auscultated. Medical Decision Making: Tongue pain, sore throat : Differential diagnoses include viral pharyngitis,??oral candidiasis,??allergic reaction,??reflux, retropharyngeal abscess. ??Given her physical assessment findings??and??the fact that she has been on recent antibiotics for community-acquired pneumonia,??oral candidiasis likely. ??No evidence of??abscess,??anaphylaxis. ??We will treat with clotrimazole troches??for the next 7 to 14 days. ??She will follow-up with her primary care provider next week.?? Discharge instructions reviewed??with patient and she verbalized understanding. Assessment/Plan 1.??Oral candidiasis??B37.0 Ordered: clotrimazole 10 mg oral lozenge, 1 lozenges, Oral, 5 times per day, # 70 lozenges, 0 Refill(s), Pharmacy: [facility] #[id number], 158, cm, 06/09/22 11:15:00 EDT, Height/Length Dosing, 48.08, kg, 06/09/22 11:15:00 EDT, Weight Dosing ?? Patient Instructions Use the clotrimazole atrocious 5 times a day for the next 14 days. Follow-up with your primary care??regarding your??pneumonia. ??Complete your antibiotics. Patient Education Oral Thrush, Adult Problem List/Past Medical History Ongoing No qualifying data Historical No qualifying data Medications amoxicillin-clavulanate 400 mg-57 mg/5 mL oral liquid atenolol 25 mg oral tablet, 25 mg= 1 tab, Oral, Daily clotrimazole 10 mg oral lozenge, 1 lozenges, Oral, 5 times per day doxycycline hyclate 100 mg oral tablet HYDROcodone-acetaminophen 10 mg-325 mg oral tablet, 1 [...] Oral, every 4 hr, PRN Allergies No Known Allergies Social History Electronic Cigarette/Vaping Electronic Cigarette Use: Never. Substance Use Current, Marijuana Tobacco Never tobacco user Tobacco Use:. Electronically Signed on 07/05/22 08:50 PM Laura Grady PA-C Outpatient Summary note * aLura Grady PA-C: PERFORM Event Display: Ambulatory Patient Summary Authored Date: [id number] LINDA REDDING :1965 Age:56 years Sex:Female Visit Date:07/05/2022 Primary Care Physician: MITCH ARROYO Ambulatory Visit Instructions We would like to thank you for allowing us to assist you with your healthcare needs. The following includes patient education materials and information regarding your injury/illness. Your Next Steps Instructions From Your Care Team Use the clotrimazole atrocious 5 times a day for the next 14 days. Follow-up with your primary care??regarding your??pneumonia. ??Complete your antibiotics. Medications What How Much When Why Instructions New clotrimazole (clotrimazole 10 mg oral lozenge) 1 Lozenges Oral (given by mouth) 5 times per day Oral candidiasis Duration: 14 Days Pickup at [facility] #[id number] Unchanged amoxicillin-clavulanate (amoxicillin-clavulanate 400 mg-57 mg/ 5 mL oral liquid) Unchanged atenolol (atenolol 25 mg oral tablet) 1 tab Oral (given by mouth) Every day Unchanged doxycycline (doxycycline hyclate 100 mg oral tablet) Unchanged HYDROcodone-acetaminophen (HYDROcodone-acetaminophen 10 mg-325 mg oral [...] needed for as needed for motion sickness Pharmacy Information [facility] #[id number]: [address], [place] [phone] Your Summary Your Diagnosis Oral candidiasis Your Care Team Attending Physician - Laura Grady PA-C Primary Care Physician - MITCH ARROYO Discharge Vitals Temperature??(Tympanic) 99.0 ??F (37.2 ??C) Heart Rate??(Peripheral) 86 Height?? 62.00 in (157.48 cm) Weight?? 94.02 lb (42.64 kg) BMI?? 17.19 Allergies No Known Allergies Education Materials Oral Thrush, Adult Oral thrush, also called oral candidiasis, is a fungal infection that develops in the mouth and throat and on the tongue. It causes white patches to form in the mouth and on the tongue. Many cases of thrush are mild, but this infection can also be serious. Thrush can be a repeated (recurrent) problem for certain people who have a weak body defense system (immune system). The weakness can be caused by chronic illnesses, or by taking medicines that limit the body's ability to fight infection. If a person has difficulty fighting infection, the fungus that causes thrush can spread through the body. This can cause life-threatening blood or organ infections. What are the causes? This condition is caused by a fungus (yeast) called Caterina albicans. ? This fungus is normally present in small amounts in the mouth and on other mucous membranes. It usually causes no harm. ? If conditions are present that allow the fungus to grow without control, it invades surrounding tissues and becomes an infection. ? Other Caterina species can also lead to thrush, though this is rare. What increases the risk? The following factors may make you more likely to develop this condition: ? Having a weakened immune system. ? Being an older adult. ? Having diabetes, cancer, or HIV (human immunodeficiency virus). ? Having dry mouth (xerostomia). ? Being or . ? Having poor dental care, especially in those who have dentures. ? Using antibiotic or steroid medicines. What are the signs or symptoms? Symptoms of this condition can vary from mild and moderate to severe and persistent. Symptoms may include: ? A burning feeling in the mouth and throat. This can occur at the start of a thrush infection. ? White patches that stick to the mouth and tongue. The tissue around the patches may be red, raw, and painful. If rubbed (during tooth brushing, for example), the patches and the tissue of the mouth may bleed easily. ? A bad taste in the mouth or difficulty tasting foods. ? A cottony feeling in the mouth. ? Pain during eating and swallowing. ? Poor appetite. ? Cracking at the corners of the mouth. How is this diagnosed? This condition is diagnosed based on: ? A physical exam. ? Your medical history. How is this treated? This condition is treated with medicines called antifungals, which prevent the growth of fungi. These medicines are either applied directly to the affected area (topical) or swallowed (oral). The treatment will depend on the severity of the condition. ? Mild cases of thrush may be treated with an antifungal mouth rinse or lozenges. Treatment usually lasts about 14 days. ? Moderate to severe cases of thrush can be treated with oral antifungal medicine, if they have spread to the esophagus. A topical antifungal medicine may also be used. For some severe infections, treatment may need to continue for more than 14 days. ? Oral antifungal medicines are rarely used during because they may be harmful to the unborn child. If you are , talk with your health care provider about options for treatment. ? Persistent or recurrent thrush. For cases of thrush that do not go away or keep coming back: ? Treatment may be needed twice as long as the symptoms last. ? Treatment will include both oral and topical antifungal medicines. ? People with a weakened immune system can take an antifungal medicine on a continuous basis to prevent thrush infections. It is important to treat conditions that make a person more likely to get thrush, such as diabetes or HIV. Follow these instructions at home: Medicines ? Take or use ctku-aop-gnudxyy and prescription medicines only as told by your health care provider. ? Talk with your health care provider about an ezuu-ztq-jbhamyg medicine called gentian lisa, whichkills bacteria and fungi. Relieving soreness and discomfort To help reduce the discomfort of thrush: ? Drink cold liquids such as water or iced tea. ? Try flavored ice treats or frozen juices. ? Eat foods that are easy to swallow, such as gelatin, ice cream, or custard. ? Try drinking from a straw if the patches in your mouth are painful. General instructions ? Eat plain, unflavored yogurt as directed by your health care provider. Check the label to make surethe yogurt contains live cultures. This yogurt can help healthy bacteria grow in the mouth and can stop the growth of the fungus that causes thrush. ? If you wear dentures, remove the dentures before going to bed, brush them vigorously, and soak themin a cleaning solution as directed by your health care provider. ? Rinse your mouth with a warm salt-water mixture several times a day. To make a salt-water mixture, dissolve ?1 tsp (3???6 g) of salt in 1 cup (237 mL) of warm water. Contact a health care provider if: ? Your symptoms are getting worse or are not improving within 7 days of starting treatment. ? You have symptoms of a spreading infection, such as white patches on the skin outside of the mouth. ? You are your baby and you have redness and pain in the nipples. Summary ? Oral thrush, also called oral candidiasis, is a fungal infection that develops in the mouth and throat and on the tongue. It causes white patches to form in the mouth and on the tongue. ? You are more likely to get this condition if you have a weakened immune system or an underlying condition, such as HIV, cancer, or diabetes. ? This condition is treated with medicines called antifungals, which prevent the growth of fungi. ? Contact a health care provider if your symptoms do not improve, or get worse, within 7 days of starting treatment. This information is not intended to replace advice given to you by your health care provider. Make sure you discuss any questions you have with your health care provider. Document Revised: 12/16/2019 Document Reviewed: 12/16/2019 [employer] Patient Education ?? 2021 [employer] Electronically Signed on: 07/05/2022 15:21 EDTSigned by: Patient Care team information Care Team Personnel Name: MITCH ARROYO Position: No Access Member Role: Primary Care Physician Address: Address: [address] [place] [id number] [place]
--- OUTSIDE RECORDS SUMMARY | 2023-01-20 02:15 | XMS_ITS | Continuity of Care Document ---
Author Name Unknown Organization [facility] Ambulatory Clinics Address [address] [place] [address] Care Team Providers Care Paving Bed Maker Name Role Phone MITCH ARROYO Primary Care Physician Encounter [facility] NBR [id number] Date(s): 01/13/23 - 01/13/23 [facility] Ambulatory Clinics [address], [place] [address] Encounter Diagnosis Microhematuria(Discharge Diagnosis) - 01/13/23 Frequent UTI(Discharge Diagnosis) - 01/13/23 Discharge Disposition: Home or Self Care Attending Physician: Apolonia Gonzalez MD Referring Physician: MITCH ARROYO Allergies, Adverse Reactions, Alerts No Known Allergies Medications amoxicillin-clavulanate 400 mg-57 mg/5 mL oral liquid 0 Refill(s) Start Date: 07/05/22 Status: Ordered atenolol 25 mg oral tablet 25 mg = 1 tab, Oral, Daily, # 30 tab, 0 Refill(s) Start Date: 01/10/22 Status: Ordered clotrimazole 10 mg oral lozenge 1 lozenges, Oral, 5 times per day, # 70 lozenges, 0 Refill(s), Pharmacy: [facility] #[id number], 158, cm, 06/09/22 11:15:00 EDT, Height/Length Dosing, [...] of trigger finger Completed Tubal ligation Completed Results Laboratory List Name Date .Urinalysis POCT 01/13/23 Most recent to oldest [Reference Range]: 1 Method of Collect POC Clean Catch *NA* (01/13/23 10:18 AM) Specific [place], Ur POC 1.025 *NA* (01/13/23 10:18 AM) Specimen Color POC [Yellow] Yellow (01/13/23 10:18 AM) Glucose, Urine POC Negative mg/dL *NA* (01/13/23 10:18 AM) Bilirubin, Urine POC [Negative] Negative (01/13/23 10:18 AM) Ketones, Urine POC [Negative mg/dL] Nega tive mg/dL (01/13/23 10:18 AM) Blood, Urine POC [Negative] Negative (01/13/23 10:18 AM) pH, Urine POC 5.5 *NA* (01/13/23 10:18 AM) Protein, Urine POC [Negative mg/dL] Nega tive mg/dL (01/13/23 10:18 AM) Urobilinogen, Urine POC [0.2] 0.2 (01/13/23 10:18 AM) Nitrite, Urine POC [Negative] Negative (01/13/23 10:18 AM) Leuk Esterase, Urine POC [Negative] Trac e *ABN* (01/13/23 10:18 AM) Clarity, Urine POC [Clear] Clear (01/13/23 10:18 AM) Vital Signs Most recent to oldest [Reference Range]: 1 Temperature Temporal Artery [36-38 Deg C ] 35.6 Deg C *LOW* (01/13/23 10:08 AM) Peripheral Pulse Rate [60-100 bpm] 80 bp m (01/13/23 10:08 AM) Blood Pressure [90-140/60-90 mmHg] 128/8 8mmHg (01/13/23 10:08 AM) Mean Arterial Pressure, Cuff [70-110 mmH g] 101 mmHg (01/13/23 10:08 AM) Weight 47.17 kg (01/13/23 10:08 AM) Weight Measured (lbs) 103.992 lb (01/13/23 10:08 AM) Weight Dosing 47.170 kg (01/13/23 10:08 AM) [place] Body Weight Calculated 50.1 kg (01/13/23 10:08 AM) Height 157.48 cm (01/13/23 10:08 AM) Height/Length Measured (inches) 62 inch (01/13/23 10:08 AM) BSA Measured 1.44 m2 (01/13/23 10:08 AM) Body Mass Index 19.02 kg/m2 (01/13/23 10:08 AM) Social History Social History Type Response Tobacco Current some day tob acco user, Former tobacco user Tobacco Use:. Sex Physician Outpatient Note * Apolonia Gonzalez MD: PERFORM Event Display: Office Clinic Note Physician Authored Date: [id number] LINDA SHAW :1965 Age:57 years Sex:Female Visit Date:01/13/2023 Primary Care Physician: MITCH ARROYO Chief Complaint Cystoscopy- ??Recurrent UTI History of Present Illness Ms. Shaw is a pleasant 57??year-old ??lady who presents to the clinic today for cystoscopy as part of her evaluation of recurrent UTI. She has had several culture proven UTI in the last few months all growing E-coli. ?? She has a long standing history of rectal prolapse. She has been referred to general surgery in the past but is afraid to have surgery. She tells me her rectum prolapses on a daily basis but she is able to reduce it on her own.? She is aware that the rectal prolapse??is likely ??playing a causative role in the frequent UTI, but has been very hesitant to consider surgery to correct it. Physical Exam Vitals & Measurements T:??35.6?C ??(Temporal Artery)?? HR:??80??(Peripheral)?? BP:??128/88?? SpO2:??98%?? HT:??157.48??cm?? WT:??47.17??kg?? BMI:??19.02?? BSA:??1.44?? Procedure CYSTOSCOPY: After informed consent was obtained from the patient, she was placed supine on the table, frog-legged, and?? prepped and draped in the usual sterile fashion.?? A time-out ??was completed.? Lidocaine jelly was instilled per urethra as a local anesthetic. Flexible cystoscopy was performed with a 17 Fr flexible cystoscope. The urethra was found to be normal, with no strictures, lesions, or diverticula noted. The bladder demonstrated no masses, no foreign bodies, and no trabeculations, and no cellules. The ureteral orifices were orthotopic bilaterally, and clear efflux was noted bilaterally as well.? The patient tolerated the procedure well andremained stable throughout.? Assessment/Plan Frequent UTI??N39.0 Microhematuria??R31.29 ASSESSMENT:? Ms. Shaw is a pleasant 57 year-old lady with recurrent UTI.?? She was given daily suppression by her PCP as UTI prevention, but?? did not refill the medication.?? She has also been prescribed estrogen to help prevent UTI, but felt the vaginal medication made her feel too slimy, so she stopped taking it. ?? PLAN: 1. She was??instructed ??to trial [id number] ??D-mannose as UTI prevention. 2. The urine will be sent for cytology. 3. She was encouraged to consider accepting a referral to colorectal surgery to discuss treatment of the rectal prolapse; she is going to think it over. Problem List/Past Medical History Ongoing Frequent UTI Historical No qualifying data Procedure/Surgical History ???Arthroscopy of knee???Biopsy of lung???Carpal tunnel release???Release of trigger finger???Tuballigation Medications amoxicillin-clavulanate 400 mg-57 mg/5 mL oral [...] Use: Never. Substance Use Current, Marijuana Tobacco Current some day tobacco user, Former tobacco user Tobacco Use:. Family History Breast cancer: Grandmother (P). COPD (Chronic Obstructive Pulmonary Disease) Assessment Test scale: Mother and Father. Lab Results Test Name Test Result Date/Time Method of Collect POC Clean Catch 01/13/2023 10:18 EST Specimen Color POC Yellow 01/13/2023 10:18 EST Clarity, Urine POC Clear 01/13/2023 10:18 EST Glucose, Urine POC Negative 01/13/2023 10:18 EST Bilirubin, Urine POC Negative 01/13/2023 10:18 EST Ketones, Urine POC Negative 01/13/2023 10:18 EST Specific [place], Ur POC 1.025 01/13/2023 10:18 EST pH, Urine POC 5.5 01/13/2023 10:18 EST Protein, Urine POC Negative 01/13/2023 10:18 EST Urobilinogen, Urine POC 0.2 01/13/2023 10:18 EST Nitrite, Urine POC Negative 01/13/2023 10:18 EST Blood, Urine POC Negative 01/13/2023 10:18 EST Leuk Esterase, Urine POC Trace 01/13/2023 10:18 EST Electronically Signed on 01/13/23 01:27 PM Apolonia Gonzalez MD Patient Care team information Care Team Personnel Name: MITCH ARROYO Position: No Access Member Role: Primary Care Physician Address: Address: [address] [place] [id number] Care Team Related Persons Name: ALEXANDRU SHAW Address: [facility]
--- NOTE | 2023-05-12 12:38 | DI.MAMMO_ITS ---
Exam(s) MAMMO SCREENING EXAM: MAMMO SCREENING CLINICAL HISTORY: SCREENING, Z12.31. TECHNIQUE: Bilateral full field digital CC and MLO mammographic images were obtained with 3D tomosyn thesis and utilizing computer aided detection (CAD). COMPARISON: Prior mammograms were reviewed. Prior ultrasound reviewed FINDINGS: There has been no significant change in the appearance and distribution of the fibroglandular tissue. There are no new spiculated masses nor malignant appearing microcalcification groups. There is no significant architectural distortion nor skin thickening-retraction. IMPRESSION: No radiographic evidence of malignancy. BI-RADS Category 1 - Negative Breast Density - Category C - Heterogeneously dense Breast density Category C or D implies that the patient has dense breast tissue. Dense breast tissue can make it harder to find cancer on a mammogram. Dense breast tissue is also associated with an incr eased risk of breast cancer. This information about the result of the mammogram report was provided to the patient to raise their awareness. Use this report when you speak with the patient about their risks for breast cancer, which includes their family history. At that time, you may recommend additional screening tests (Ultrasoun d or MRI) as these tests may add significant information. A negative radiographic report should not delay biopsy if a dominant or clinically suspicious mass is present. Up to ten percent of cancers are not identified on mammography. A negative report may reinforce clinical impression. Adenosis and dense breasts may obscure an underlying neoplasm. False positive reports average 6 to 10%. Patient will receive a letter notifying them of these results.
== END ==
PROVIDERS: PCP Family Medicine; Visit Provider Family Medicine
DX: Z12.31 Encounter for screening mammogram for malignant neoplasm of breast (principal); R92.333 Mammographic heterogeneous density, bilateral breasts
CPT/HCPCS: 77063; 77067

== ENCOUNTER 2023-09-07 12:34 | Outpatient (CLI) | payer OTHER, SELFPAY ==
--- NOTE | 2023-09-07 11:00 | DI.RAD_ITS ---
Exam(s) XR KNEE LT 4V AP,LAT,BASILIO,PAT EXAM: XR KNEE LT 4V AP,LAT,BASILIO,PAT CLINICAL HISTORY: LEFT KNEE PAIN. TECHNIQUE: 2D digital imaging was performed. Three views. COMPARISON: No exams were available for comparison FINDINGS: BONES: No acute fracture is present. No bony destructive lesion is seen. JOINTS: Moderate to severe narrowing of the medial femoral tibial joint space. Mild varus angulation . Mild periarticular spurring. Patellofemoral joint spaces maintained. No joint effusion is seen. SOFT TISSUE: Normal. 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 DATA REPOSITORY: RADIATION DOSE DELIVERED:
== END 2023-09-07 12:35 | disposition home or self-care (01) ==
LOC: DIORS 12:35
PROVIDERS: PCP Family Medicine; Visit Provider Physician Assistant
DX: M25.562 Pain in left knee (principal); M17.12 Unilateral primary osteoarthritis, left knee
CPT/HCPCS: 73564

== ENCOUNTER 2023-12-29 13:15 | Emergency (ER) | payer OTHER, SELFPAY ==
[2023-12-29 13:17] VITALS: BP 168/96; PULSE 81; RESP 18; TEMP 36.6; O2SAT 98
--- NOTE | 2023-12-29 14:11 | DI.RAD_ITS ---
Exam(s) XR HAND RT COMPLETE EXAM: XR HAND RT COMPLETE CLINICAL HISTORY: pain and swelling in wrist and hand. TECHNIQUE: 2D digital imaging was performed. Three views. COMPARISON: CR RIGHT WRIST LIMITED from 03/09/2013 CR RIGHT WRIST LIMITED from 05/24/2013 FINDINGS: Exam is limited by positioning on the lateral view which is oblique. BONES: No acute fracture is present. No bony destructive lesion is seen. JOINTS: No dislocation present. Severe degenerative changes throughout the carpal region. Dorsal t ilt of the lunate. Proximal migration of the capitate. Severe degenerative changes of the 1st carpa l metacarpal joint. Prior resection of the trapezium versus fragmentation. Multiple surrounding bon y fragments. Milder degenerative changes of the interphalangeal joints. SOFT TISSUE: Significant soft tissue swelling. No abnormal gas collection or foreign body. IMPRESSION: Severe degenerative changes of the carpal region. Exam is limited however no acute fracture is seen. Severe soft tissue swelling around the carpal region. DATA REPOSITORY: RADIATION DOSE DELIVERED:
[2023-12-29] MEDS: Diclofenac 1% Gel 100 GM TUBE TP (14:14)
--- NOTE | 2023-12-29 14:53 | W.ED.GENAD ---
Discharge Plan Disposition Patient Disposition: Home Condition: Good Discharge Details Clinical Impression: Degenerative arthritis of thumb, Swelling of right hand Primary Care Provider: Mariia Dale V ED Provider: Chase Martin Home Meds and New Rx's Prescriptions: No Action famotidine 40 mg tablet 40 mg PO DAILY Qty: 90 3RF meloxicam [Mobic] 15 MG tablet 15 mg PO DAILY ibuprofen [Advil] 200 mg tablet 200 mg PO Q6H PRN One-A-Day Women's 50 Plus 400-20 mcg tablet 1 tab PO DAILY naloxone [Narcan] 4 mg/actuation spray,non-aerosol 4 mg intranasal Q2M PRN Rx Instructions: spray 1 dose into ONE nostril; alternate nostrils w each dose until help arrives amlodipine 10 mg tablet 10 mg PO DAILY hydrocodone-acetaminophen 10-325 mg tablet 1 tab PO Q6H PRN oxycodone 20 mg tablet extended release 12 hr 20 mg PO HS nitroglycerin 0.4 mg tablet, sublingual 0.4 mg sublingual DIRECTED PRN Rx Instructions: do not exceed 3 doses per episode albuterol sulfate 2.5 mg /3 mL (0.083 %) solution for nebulization 2.5 mg inhalation Q4H PRN mirtazapine 15 mg tablet 30 mg PO DAILY atenolol 25 mg tablet 25 mg PO DAILY lorazepam 1 MG tablet 1 mg PO BID albuterol sulfate [ProAir HFA] 200 PUFF HFA aerosol inhaler 2 puff Inhalation PRN PRN promethazine 25 MG tablet 25 mg PO Q6H PRNQty: 12 0RF polyethylene glycol 3350 [Miralax] 17 GM powder in packet 17 gm PO DAILY PRN Patient Comments: 03/28/14 Pt states Qthree days. PG cyanocobalamin (vitamin B-12) 1,000 MCG/ML solution 1,000 mcg IM .QMONTHLY Patient Comments: 12/29/14- Pt has not taken for a couple of months. KL mometasone [Nasonex] 17 GM spray,non-aerosol 1 spray NS DIRECTED PRN fexofenadine-pseudoephedrine [Yanira-D 12 Hour] 1 EACH tablet extended release 12 hr 1 tab PO BID PRN Discharge Instructions Instructions: Osteoarthritis Additional Instructions: At this time there is no evidence of new fracture in your hand. The swelling is secondary to the diffusion of the fluid from the initial fluid capsule. Please apply the Voltaren gel 4 times per day. Please keep the hand wrapped throughout the day. This will help diminish the swelling over time. Please ice it frequently as you have been doing. If you notice any redness or warmth, please return immediately for reassessment as this could represent infection. If you notice any worsening of your symptoms, or any new symptoms such as vomiting, diarrhea, fever, chills, shortness of breath, chest pain, numbness, weakness, or fainting , please return immediately to the emergency department for reevaluation. Please follow up with your primary care provider as soon as possible for reassessment and reevaluation. As always, it was a pleasure participating in your medical care today. Referrals: Mariia Dale MD [Primary Care Provider] - [facility] General Date/Time Provider Initiated Documentation: 12/29/23 13:29. HPI Narrative: This is a 58-year-old female with a past medical history of known severe arthritis in the right hand after previous injuries, who presents today for swelling of the right hand. Patient states that she chronically has a fluid bubble around her right sided MCP joint. Often times this gets sore and she will gently rub it which helps with the pain. It was sore yesterday and she began to rub it and the bubble burst under the skin and diffuse throughout her hand. Over the last 48 hours she has had mild swelling but no redness. She has been icing the area. It has been minimally sore. She has come here for further evaluation. She denies fever or chills. She denies any other trauma. No other complaints at this time. No other modifying factors. Related Data Home Medications ?Medication ?Instructions ?Recorded ?Confirmed albuterol sulfate 90 mcg/actuation 2 puff inhalation PRN PRN 01/31/13 12/29/23 aerosol inhaler (ProAir HFA) lorazepam 1 mg tablet 1 mg PO BID 01/31/13 12/29/23 promethazine 25 mg tablet 25 mg PO Q6H PRN #12 tabs 01/31/13 12/29/23 cyanocobalamin (vitamin B-12) 1,000 mcg IM .QMONTHLY 03/27/14 12/29/23 1,000 mcg/mL injection solution fexofenadine 60 mg-pseudoephedrine 1 tab PO BID PRN 03/27/14 12/29/23 ER 120 mg tablet,ext.release,12 hr (Yanira-D 12 Hour) mometasone 50 mcg/actuation nasal 1 spray NS DIRECTED PRN 03/27/14 12/29/23 spray (Nasonex) polyethylene glycol 3350 17 gram 17 gm PO DAILY PRN 03/27/14 12/29/23 oral powder packet (Miralax) meloxicam 15 mg tablet (Mobic) 15 mg PO DAILY 05/13/16 12/29/23 amlodipine 10 mg tablet 10 mg PO DAILY 01/31/21 12/29/23 hydrocodone 10 mg-acetaminophen 1 tab PO Q6H PRN 01/31/21 12/29/23 325 mg tablet ibuprofen 200 mg tablet (Advil) 200 mg PO Q6H PRN 01/31/21 12/29/23 lfeqckxndbfz-suvrtnyz-yecffny-folic 1 tab PO DAILY 01/31/21 12/29/23 acid 400 mcg-vit K1 20 mcg tablet (One-A-Day Women's 50 Plus) naloxone 4 mg/actuation nasal 4 mg intranasal Q2M PRN 01/31/21 12/29/23 spray (Narcan) oxycodone 20 mg tablet,extended 20 mg PO HS 01/31/21 12/29/23 release,12 hr albuterol sulfate 2.5 mg/3 mL 2.5 mg inhalation Q4H PRN 08/22/22 12/29/23 (0.083 %) solution for nebulization mirtazapine 15 mg tablet 30 mg PO DAILY 08/22/22 12/29/23 nitroglycerin 0.4 mg sublingual 0.4 mg sublingual DIRECTED PRN 08/22/22 12/29/23 tablet famotidine 40 mg tablet 40 mg PO DAILY #90 tabs 10/16/22 12/29/23 atenolol 25 mg tablet 25 mg PO DAILY 05/05/23 12/29/23 Previous Rx's ?Medication ?Instructions ?Recorded promethazine 25 mg tablet 25 mg PO Q6H PRN #12 tabs 01/31/13 famotidine 40 mg tablet 40 mg PO DAILY #90 tabs 10/16/22 Allergies Allergy/AdvReac Type Severity Reaction Status Date / Time No Known Allergies Allergy Verified 12/29/23 13:22 General Stated Complaint: Orthopedic EVIN: 3 Review of Systems All systems reviewed & are unremarkable except as noted in HPI and below Exam Narrative Exam Narrative: 1.Const: Well-nourished, Well-developed, appearing stated age 2.Eyes: PERRL, no conjunctival injection, and symmetrical lids. 3.ENT: Atraumatic external nose and ears. Moist MM. Neck: Symmetric, trachea midline, No thyromegaly. 4.CVS: +S1/S2, Peripheral pulses 2+ and equal in all extremities. Brisk capillary refill in all extremities. 5.RESP: Unlabored respiratory effort. Clear to auscultation bilaterally. No wheezes rales or rhonchi 6.GI: Soft, Nontender/Nondistended, No hepatosplenomegaly. No guarding or rebound. 7.MSK: Patient's right hand demonstrates mild diffuse swelling over the dorsal aspect. No redness erythema or warmth. No focal tenderness. Digits are normal in size with only minimal swelling. No lesions to suggest trauma active bleeding or early infection. No focal pain. 8.Skin: Warm, Dry. No rashes or lesions. 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 Sensation grossly intact, no focal neurologic deficits. 10.Psych: (AAO) x3. Appropriate mood and affect Course Vital Signs Vital signs: Vital Signs Temperature 36.6 C 12/29/23 13:17 Pulse 81 12/29/23 13:17 Respiratory Rate 18 12/29/23 13:17 Blood Pressure 168/96 H 12/29/23 13:17 Pulse Oximetry 98 12/29/23 13:17 Temperature 36.6 C 12/29/23 13:17 Temperature Source Oral 12/29/23 13:17 Pulse 81 12/29/23 13:17 Respiratory Rate 18 12/29/23 13:17 Respiratory Effort Normal 12/29/23 14:12 Blood Pressure 168/96 H 12/29/23 13:17 Blood Pressure Position Sitting 12/29/23 13:17 Pulse Oximetry 98 12/29/23 13:17 Oxygen Delivery Method Room Air 12/29/23 13:17 Oxygen Flow Rate 0 12/29/23 13:17 Pain Level 2 12/29/23 13:17 Medical Decision Making This is a 58-year-old female with a past medical history of known severe arthritis in the right hand after previous injuries, who presents today for swelling of the right hand. Patient states that she chronically has a fluid bubble around her right sided MCP joint. Often times this gets sore and she will gently rub it which helps with the pain. It was sore yesterday and she began to rub it and the bubble burst under the skin and diffuse throughout her hand. Over the last 48 hours she has had mild swelling but no redness. She has been icing the area. It has been minimally sore. She has come here for further evaluation. She denies fever or chills. She denies any other trauma. No other complaints at this time. No other modifying factors. Exam demonstrates well-appearing female, Patient's right hand demonstrates mild diffuse swelling over the dorsal aspect. No redness erythema or warmth. No focal tenderness. Digits are normal in size with only minimal swelling. No lesions to suggest trauma active bleeding or early infection. No focal pain. I suspect the patient had a small cystic lesion that was present at the MCP joint from her previous injuries and scarring, when it was pushed it caused effusion of said fluid which is now caused the localized inflammation. However there is no evidence to suggest active infection at this time. X-ray was ordered which shows chronic severe arthritis, but no acute process. Will give Voltaren gel for topical NSAID therapy, and I did personally wrap the hand to help with the diffusion of the swelling. Recommend continued ice, and extremely close monitoring for any evidence of infection or redness that would suggest the need to immediately return for reassessment. Patient and family understand. Discussed red flags for which to return. I have extensively reviewed the treatment plan and discharge instructions with the patient. I have addressed all patient concerns at this time. The patient was made aware of what symptoms to monitor for that would warrant a return to the emergency department. Discussed the plan with the patient, they demonstrate verbal understanding and agreement with our assessment and plan at this time. The documentation in this chart was dictated using [employer] dictation software. Please excuse any dictation errors. Quality:SDOH Health Related Social Needs: No Data to Display PFSH All Active Problems Swelling of right hand (Acute) Degenerative arthritis of thumb (Acute) Primary osteoarthritis of left knee (Acute) Personal history of nicotine dependence (Acute) Hypersensitivity pneumonitis (Acute) Unintentional weight loss (Acute) Tachycardia (Acute) GERD (gastroesophageal reflux disease) (Chronic) Marijuana use (Acute) Rectal bleed (Acute) History of tobacco use (Acute) Arthritis of right shoulder region (Acute) Screening for colon cancer (Acute) Lumbosacral spondylosis without myelopathy (Acute) Trigger finger, right middle finger (Acute) Arthritis of left glenohumeral joint (Acute) Contusion of chest (Acute) Abnormal CT scan (Acute) Chest wall pain (Acute) Pneumonia (Acute) Anxiety disorder (Acute) Interstitial lung disease (Acute) Medical History Exposure to COVID-19 virus Hx of syncope Concussion with loss of consciousness status unknown sequela Alcohol abuse, in remission History of adenomatous polyp of colon Hypertension Left shoulder pain Right wrist pain Trigger finger (acquired) Low back pain Reaction, situational Seasonal allergies Rupture of left biceps tendon Dermacentor andersoni tick bite Abnormal mammogram of left breast Dyspnea on exertion Abdominal discomfort Viral URI History of alcohol use Depression Generalized anxiety disorder Tubular adenoma of colon Bakers cyst Recurrent UTI Rheumatoid nodule Headache Eustachian tube dysfunction Raynauds disease Gastroenteritis PTSD (post-traumatic stress disorder) Pt. states no potential triggers Chronic pain Dental infection B12 deficiency Elevated liver enzymes Rib pain on left side No-show for appointment Tendinopathy of left biceps tendon Left rotator cuff tear Rupture long head biceps tendon Primary osteoarthritis, left shoulder Rectal prolapse Shoulder pain, bilateral Joint pain COPD (chronic obstructive pulmonary disease) Surgical History History of tubal ligation History of carpal tunnel release History of arthroscopic knee surgery Trigger Finger release Colonoscopy - IV Sedation 2011 Social History Smoking/Tobacco Use Status: Former Tobacco Use tobacco type: cigarettes Quit Date: 02/23/19 Smoking risk assessment performed?: Yes Alcohol Intake: former Drug use: Daily Substance use type: former substance user and marijuana Housing: house Current gender identity: female Do you feel safe at home: Yes Do you feel safe in your relationship?: Yes
== END 2023-12-29 15:04 | disposition home or self-care (01) ==
PROVIDERS: Emergency Provider Student in an Organized Health Care Education/Training Program; PCP Family Medicine
DX: R22.31 Localized swelling, mass and lump, right upper limb (principal); M18.11 Unilateral primary osteoarthritis of first carpometacarpal joint, right hand; I10 Essential (primary) hypertension; J44.9 Chronic obstructive pulmonary disease, unspecified; Z87.891 Personal history of nicotine dependence
CPT/HCPCS: 99283; 73130

== ENCOUNTER 2024-02-03 13:19 | Outpatient (REF) | payer OTHER, SELFPAY ==
[2024-02-03 13:54] LABS: Abs Immature Grans 0.02 10^3/uL (0.0-0.06); Absolute Basophil Count 0.03 10^3/uL (0.0-0.2); Absolute Eosinophil Count 0.11 10^3/uL (0.0-0.7); Absolute Lymphocyte Count 0.99 10^3/uL (1.2-3.4); Absolute Neutrophil Count 2.23 10^3/uL (1.2-6.7); Basophils % 0.7 %; Eosinophils % 2.7 %; HCT 37.4 % (36.0-46.0); HGB 12.9 g/dL (11.2-15.7); Immature Grans % 0.5 %; Lymphocytes % 24.3 %; MCH 35.6 pg (27.0-33.0); MCHC 34.5 % (32.0-36.0); MCV 103 fL (80-95); MPV 10.7 fL (8.0-11.0); Monocytes % 17.2 %; Neutrophils % 54.6 %; Platelet Count 122 10^3/uL (130-400); RBC 3.62 10^6/uL (3.93-5.22); RDW 12.8 % (11.7-14.6); RDW-SD 49.1 fL; WBC 4.08 10^3/uL (4.4-10.8)
[2024-02-03 21:52] LABS: IgE 369 IU/mL (<158)
[2024-02-04 20:08] LABS: Aspergillus Fumigatus IgE <0.10 kU/L (<0.70); Baker's Yeast, IgE 0.11 kU/L (<0.70); Botrytis Cinerea IgE 0.12 kU/L (<0.70); Canary Feathers IgE <0.10 kU/L (<0.70); Candida Albicans (Monilia),IgE 0.23 kU/L (<0.70); Cat Epithelium IgE <0.10 kU/L (<0.70); Cockroach IgE <0.10 kU/L (<0.70); Cow IgE <0.10 kU/L (<0.70); D Farinae IgE <0.10 kU/L (<0.70); D Pteronyssinus IgE <0.10 kU/L (<0.70); Dog Dander IgE <0.10 kU/L (<0.70); Eastern Sycamore IgE 0.96 kU/L (<0.70); False Ragweed, IgE 0.16 kU/L (<0.70); Finch Feathers, IgE <0.10 kU/L (<0.70); Giant Ragweed IgE 0.67 kU/L (<0.70); Goldenrod IgE 0.11 kU/L (<0.70); June Grass IgE <0.10 kU/L (<0.70); Oak IgE <0.10 kU/L (<0.70); Penicillin G IgE <0.10 kU/L (<0.70); Penicillin V IgE 0.14 kU/L (<0.70); Penicillium chrysogenum IgE <0.10 kU/L (<0.70); Short Ragweed IgE 0.16 kU/L (<0.70); White Pine, IgE <0.10 kU/L (<0.70)
[2024-02-04 20:18] LABS: Mouse Serum Protein IgE <0.10 kU/L (<0.70); Spruce, IgE <0.10 kU/L (<0.70)
== END 2024-02-03 13:20 | disposition home or self-care (01) ==
LOC: LBN 13:19
PROVIDERS: PCP Family Medicine; Visit Provider Physician Assistant Surgical
DX: J67.9 Hypersensitivity pneumonitis due to unspecified organic dust (principal); K21.9 Gastro-esophageal reflux disease without esophagitis
CPT/HCPCS: 86003; 82785; 84307; 85025; 86592

== ENCOUNTER 2024-03-15 02:40 | Outpatient (CLI) | payer OTHER, SELFPAY ==
[2024-03-15] MEDS: Inhaler, Assist Device 1 EACH MC (14:15)
[2024-03-15] MEDS: Levalbuterol HFA 15 GM INH 4 PUFF IH (14:15)
--- NOTE | 2024-03-15 15:45 | W.PFT ---
Date of service: 03/15/24 Time of Service: 13:00 Pulmonary Function Test Result Indications: Hypersensitivity pneumonitis Interpretation Spirometry: There is no airflow limitation. No significant bronchodilator response. Lung Volumes: Normal lung volumes Diffusion Capacity: Normal diffusion Airway Pressure: Normal airways resistance Impression Normal pulmonary function testing Clinical Correlation therefore is recommended.
== END 2024-03-15 02:41 | disposition home or self-care (01) ==
LOC: RT 02:41
PROVIDERS: PCP Family Medicine; Visit Provider Student in an Organized Health Care Education/Training Program
DX: J67.8 Hypersensitivity pneumonitis due to other organic dusts (principal)
CPT/HCPCS: 94060; 94726; 94729

== ENCOUNTER 2024-05-16 01:36 | Outpatient (CLI) | payer OTHER, SELFPAY ==
--- NOTE | 2024-05-16 | DI.NM_ITS ---
APPROVED REPORT Exam: Pharmacologic Patient Location: Out-Patient Room/Bed: Stress Nurse: Rashmi Sahni RN Ordering Provider:MITCH TSANGDENYS, Contact Number: [phone] BMI: 17.71 Baseline Rhythm: Sinus Rhythm Indications: Dyspnea, Medical History Medical History: Depression, anxiety, nicotine dependence, PTSD, chronic pain, HTN, pulmonary emphyse ma, COPD, GERD, dyspnea, interstital lung disease, marijuana use Cardiac Medications: Albuterol sulfate, aspirin, atenolol, famotidine, hydroxyzine, meloxicam, mirata pine, nitro, stiolto respimat Allergies: Buspirone Cardiac Risk Factors: HTN, COPD, smoker Previous Cardiac Procedures: None Pretest Chest Pain Characteristics: None Exercise History: Indeterminate Physical Disabilities: None Lung Sounds: Clear to auscultation Heart Sounds: Regular Stress Test Details Test: Pharmacologic stress was paired with low level exercise. Reason for pharmacologic stress test: Beta kristi. Nuclear Acquisition: Rest Tc-99m/Stress Tc-99m 1 day Rest Isotope: Tc-99m Sestamibi. Dose: 10.0 Date: 05/16/2024 Injection Time: 1100 Stress Isotope: Tc-99m Sestamibi. Dose: 30.0 Date: 05/16/2024 Injection Time: 1324 HR Resting HR Supine: 63 bpm Max Heart Rate (APMHR): 162 bpm Resting HR Standin bpm Target HR (85% APMHR): 138 bpm Max HR Achieved: 122 bpm % of APMHR: 75 Recovery HR: 73 bpm BP Resting BP Supine: 152/88 mmHg Resting BP Standin/80 mmHg Max BP: 160/92 mmHg Recovery BP: 148/84 mmHg ECG Resting ECG: Sinus Rhythm Stress ECG: Sinus Tachycardia ST Change: Nondiagnostic low heart rate Recovery ECG: Sinus Rhythm Recovery ST Change: Nondiagnostic low heart rate Recovery Arrhythmia: Rare PAC Clinical Stress Symptoms: Mild SOB Angina Score: None Rate Pressure Product: [id number] Stress ECG Conclusion 1. Resting electrocardiogram was normal 2. Patient underwent testing using a combination of low-level exercise and pharmacologic stress with regadenoson 3. Peak heart rate achieved was 75% of maximal predicted for age 4. Electrocardiographic portion of the test was nondiagnostic 5. See MPI report Stress Test Summary STAGE HR BP SpO2 Symptoms NOTES Supine 63 152/88 93% Standing 79 126/80 1 min post Lexiscan injection 89 160/92 98% Mild SOB 3 min post Lexiscan injection 75 150/86 96% 6 min post Lexiscan injection 73 148/84 98% All symptoms resolved. MPI Conclusion Myocardial perfusion is normal. There is no ischemia or evidence of prior infarction Ejection fraction is 74% with normal wall motion
[2024-05-16] MEDS: Regadenoson 0.4 MG/5 ML SYR IVP (13:50)
== END 2024-05-16 01:56 ==
LOC: DI 01:36
PROVIDERS: PCP Family Medicine; Visit Provider Internal Medicine Cardiovascular Disease
DX: R06.00 Dyspnea, unspecified (principal)
CPT/HCPCS: 78452; 93017; J2785

== ENCOUNTER 2024-08-04 01:10 | Outpatient (CLI) | payer OTHER, SELFPAY ==
--- NOTE | 2024-08-04 12:43 | DI.RAD_ITS ---
Exam(s) XR FOOT LT COMPLETE EXAM: XR FOOT LT COMPLETE CLINICAL HISTORY: Left foot pain, M79.672. TECHNIQUE: 2D digital imaging was performed. COMPARISON: No exams were available for comparison FINDINGS: 3 views There is no evidence of fracture or diastasis of the Lisfranc joint. There is hallux valgus. Moderate degenerative changes in the great toe metatarsophalangeal joint. There also degenerative changes in the 2nd and 3rd tarsometatarsal joints Hindfoot articulations appear unremarkable. No inferior calcaneal spur. Mild pes planus. There is a soft tissue density on the lateral aspect of the foot adjacent to the junction of the mid and proximal aspects of the 5th metatarsal. This measures 1.4 by of 0.6 cm. It appears noncalcified and there is no radiopaque foreign body at this level nor gas in the soft tissues nor evidence of osteomyelitis in the adjacent 5th metatarsal IMPRESSION: Hallux valgus. Tarsometatarsal joint osteoarthritic degenerative changes. No fractures. Soft tissue density on the lateral aspect of the foot as described above. No adjacent bone findings in the 5th metatarsal. If clinically indicated further study with MRI can be performed DATA REPOSITORY: RADIATION DOSE DELIVERED:
== END 2024-08-04 01:30 ==
LOC: DI 01:10
PROVIDERS: PCP Family Medicine; Visit Provider Podiatrist
DX: M20.22 Hallux rigidus, left foot (principal)
CPT/HCPCS: 73630

== ENCOUNTER 2024-08-30 01:39 | Outpatient (CLI) | payer OTHER, SELFPAY ==
--- NOTE | 2024-08-30 06:45 | DI.MRI_ITS ---
Exam(s) MR LOWER EXTREMITY LT WO/W EXAM: MR LOWER EXTREMITY LT WO/W CLINICAL HISTORY: Fibroma versus ganglion CYST,D21.9,M67.472 TECHNIQUE: Multiplanar multisequence MRI was performed on 1.5 jostin unit with both pre and post contrast infused sequences IV contrast injected was 8 mL Dotarem COMPARISON: CR XR FOOT LT COMPLETE from 08/04/2024 FINDINGS: MARROW ARTICULATIONS:There is an effusion in the ankle tibiotalar joint in the peripheral aspect of the field of view. There is no evidence of fracture, bone contusion, nor avascular necrosis. There is significant nonexpansile signal abnormality throughout the majority of the cuboid bone. Lesser amount of the same is seen in the distal most subarticular calcaneus. There is also some signal abnormality evident in the medial and middle cuneiform bones. There are some degenerative changes in the tarsometatarsal joints. Small effusion noted in the 2nd tarsometatarsal joint. There is signal abnormality in the 2nd, 4th and metatarsals. The appearance of the marrow signal abnormality in the proximal 2/3 of the 5th metatarsal is similar to that which is seen in the cuboid bone. There is moderate hallux valgus noted. Mild degenerative changes in the great toe metatarsophalangeal joint. SINUS TARSI: Intact. No loss of normal fat signal within this space and no evidence of tightness tarsi ganglion cyst. TENDONS: No tendon tears nor tenosynovitis evident. EXTRAMUSCULAR SOFT TISSUES: There is a well-defined lobulated/septated nonenhancing fluid intensity lesion located along the dorsal lateral aspect of the bases of the 4th and 5th metatarsals measuring approximately 1.8 x 1.7 x 1.5 cm and having the appearance of a ganglion cyst. OTHER: No evidence of interdigital Nava's neuroma IMPRESSION: 1. There is a subcutaneous lesion in the dorsal lateral aspect of the foot over the bases of the 4th and 5th metatarsals measuring approximately 18 x 17 x 15 mm, exhibiting fluid intensity and no internal enhancement and having appearance compatible with a ganglion cyst. This corresponds to her visible/palpable finding at this location. 2. There is significant signal abnormality involving much of the bones in the midfoot, most extensive in the cuboid and 5th metatarsal but also involving the medial and middle cuneiform as well as the 2nd and 4th metatarsals as well as the distal calcaneus. These are non expansile. The appearance of the cuboid may be related to presence of a hemangioma therein. No focal finding seen at these levels on recent plain films of 08/04/2024. I recommend performing CT scan as this may add specificity with respect to these bone findings in the midfoot. 3. Moderate hallux valgus noted. DATA REPOSITORY:
[2024-08-30] MEDS: Gadoterate meglumine 20 ML VIAL 8 ML IVP (10:07)
[2024-08-30] MEDS: Normal Saline Flush 10 ML SYR IVP (10:07)
--- NOTE | 2024-08-30 13:20 | DI.VRAD_ITS ---
PROCEDURE INFORMATION: Exam: MR Left Lower Extremity Without and With Contrast; Forefoot Exam date and time: 08/30/2024 9:51 AM Age: 58 years old Clinical indication: Swelling, leg or foot; Left lateral mid-foot ganglion like swelling x 3 months, no trauma TECHNIQUE: Imaging protocol: MR of the left foot without and with contrast. Exam focused on the forefoot. Contrast material: DOTAREM; Contrast volume: 8 ml; Contrast route: INTRAVENOUS (IV); COMPARISON: CR XR FOOT LT COMPLETE 08/04/2024 12:36 PM (report not provided) FINDINGS: Bones/joints: There is a hallux valgus deformity. The joint spaces are otherwise normally aligned. Joint fluid is within physiologic limits. No fracture is identified. There are mild degenerative changes. The cuboid is largely replaced by lobulated low T1 and high T2 signal. Lesser changes involve the distal aspect of the calcaneus, much of the 5th metatarsal shaft, and portions of the cuneiforms and 2nd metatarsal. This could be degenerative and/or related to hemangioma formation. There is no significant radiographic correlate, however, and other pathology is not excluded. LIGAMENTS: Collateral ligaments of digits: Unremarkable. No evidence of tear. Lisfranc ligament: The Lisfranc ligament is intact. TENDONS: Flexor tendons of foot: Unremarkable. No evidence of tear. Extensor tendons of foot: Unremarkable. No evidence of tear. Soft tissues: In the subcutaneous soft tissues along the dorsolateral aspect overlying the bases of the 4th and 5th metatarsals is a mildly lobulated and septated, nonenhancing, fluid intensity signal lesion measuring approximately 1.8 x 1.8 x 1.5 cm, compatible with a ganglion cyst. IMPRESSION: 1. Subcutaneous lesion along the dorsolateral aspect over the bases of the 4th and 5th metatarsals compatible with ganglion cyst. 2. Signal abnormalities involving much of the bones of the midfoot as described, could be degenerative and/or related to hemangioma formation, but without significant correlate on radiographs of 08/04/2024. As such, would further characterize with CT to evaluate for any more aggressive pathology. Dictated and Authenticated by: Ion Dang MD. Orderin Xiomara Wyatt MD
== END 2024-08-30 01:59 ==
LOC: DI 01:39
PROVIDERS: PCP Family Medicine; Visit Provider Podiatrist
DX: M67.472 Ganglion, left ankle and foot; R93.89 Abnormal findings on diagnostic imaging of other specified body structures
CPT/HCPCS: 73720

== ENCOUNTER 2024-09-06 07:08 | Outpatient (CLI) | payer OTHER, SELFPAY ==
--- NOTE | 2024-09-06 11:58 | W.CARDEVENT ---
Date of service: 09/06/24 Time of Service: 11:58 Cardiac Event Recorder Referring Provider:: Mariia Dale Indications:: Tachycardia Cardiac Event Note: This is a cardiac event monitor. Patient was monitored for 7 days and 18 hours. Rhythm throughout was sinus with an average heart rate of 85. Minimum of 61, maximum 131 There were very rare isolated ventricular ectopic beats There were very rare isolated atrial premature beats There was no atrial fibrillation, no high-grade AV block, no pauses greater than 3 seconds Symptoms were reported. These correlated to sinus rhythm, generally with heart rates in the 80s, rarely heart rate of 100
== END 2024-09-06 07:09 | disposition home or self-care (01) ==
LOC: CARDOPNVT 07:08
PROVIDERS: PCP Family Medicine; Visit Provider Internal Medicine Cardiovascular Disease
DX: R00.0 Tachycardia, unspecified (principal)
CPT/HCPCS: 93248

== ENCOUNTER 2024-09-30 15:40 | Outpatient (REF) | payer OTHER, SELFPAY | END 2024-09-30 15:41 | disposition home or self-care (01) | LOC: NCHCN 15:40 | PROVIDERS: PCP Family Medicine; Visit Provider Family Medicine | DX: R30.0 Dysuria (principal) | CPT/HCPCS: 87077; 87086; 87186 ==

== ENCOUNTER → 2024-12-30 03:20 | Outpatient (CLI) | payer OTHER, SELFPAY ==
--- NOTE | 2024-12-30 | DI.RAD_ITS ---
Exam(s) XR CHEST 2V PA LATERAL EXAM: XR CHEST 2V PA LATERAL CLINICAL HISTORY: PURULENT BRONCHITIS,J41.1 TECHNIQUE: 2D digital imaging was performed of the chest. Two images were obtained. PA and lateral views were obtained. COMPARISON: CR XR CHEST 2V PA LATERAL from 06/24/2022 CR XR PORTABLE CHEST AP from 11/14/[address] CHEST LUNG CANCER SCREEN from 09/27/2024 FINDINGS: MEDIASTINUM: Normal. HEART: Normal. PULMONARY VASCULATURE: Normal. LUNGS: There are no focal consolidating infiltrates. The lungs are hyperexpanded. PLEURAL SPACE: No pleural effusion or pneumothorax. BONE:Within normal limits for the patient's age. OTHER FINDINGS:Normal. IMPRESSION: 1. Hyperexpanded lungs which may reflect COPD. 2. There are no focal consolidating infiltrates. DATA REPOSITORY: RADIATION DOSE DELIVERED:
== END ==
LOC: DI 03:22
PROVIDERS: PCP Family Medicine; Visit Provider Family Medicine
DX: J41.1 Mucopurulent chronic bronchitis (principal); J98.4 Other disorders of lung
CPT/HCPCS: 71046